=== PATIENT | female | born 1935 | race Caucasian/White ===

== ENCOUNTER → 2017-05-01 | Day surgery (SDC) | payer MEDICARE ==
[2017-04-29 11:30] LABS: BASOPHILS # (AUTO) 0.1 (0.0-0.1); BASOPHILS % 0.7 % (0.0-1.0); EOSINOPHILS # (AUTO) 0.1 (0.0-0.4); EOSINOPHILS % 1.3 % (0.0-6.0); HEMATOCRIT 45.7 % (34.2-44.1); HEMOGLOBIN 15.2 g/dL (12.0-16.0); LYMPHOCYTES # (AUTO) 2.6 (1.0-3.2); LYMPHOCYTES % 23.7 % (18.0-39.1); MEAN CORPUSCULAR HGB CONC 33.3 g/dL (31-35); MEAN CORPUSCULAR VOLUME 96.2 fL (81-99); MONOCYTES # (AUTO) 0.8 (0.2-0.8); MONOCYTES % 7.6 % (4.4-11.3); NEUTROPHILS # (AUTO) 7.3 (2.1-6.9); NEUTROPHILS % 66.1 % (38.7-80.0); PLATELET COUNT 265 x10e3/uL (140-360); RED BLOOD COUNT 4.75 x10e6/uL (3.6-5.1); RED CELL DISTRIBUTION WIDTH 13.9 % (11.7-14.4)
[~2017-05-01] MED LIST: AMIODARONE HCL200 MG PO; ASPIRIN81 MG PO; ATENOLOL50 MG PO; LEVOTHYROXINE50 MCG PO; LIDOCAINE HCL 2% LOCAL INJ 5 ML SDV VIAL INJ ONE; LYRICA50 MG PO; METOLAZONE5 MG PO; NITRO-BID1 GM TOP; ONDANSETRON HCL INJ 2 MG/ML VIAL ONE; PRAVASTATIN SOD40 MG PO; PROPOFOL IV EMULSION 10 MG/ML 50 ML VIAL ONE; SPIRONOLACTONE25 MG PO; WARFARIN SODIU2.5 MG PO
[2017-05-01 09:39] LABS: INR 1.36; PROTHROMBIN TIME 17.5 seconds (11.9-14.5)
--- NOTE | 2017-05-01 13:26 | Operative Report ---
DATE OF PROCEDURE: May 01, 2017 PROCEDURE PERFORMED: 1. Esophagogastroduodenoscopy with esophageal dilatation and biopsies. 2. Colonoscopy. INDICATIONS FOR ESOPHAGOGASTRODUODENOSCOPY: Dysphagia. INDICATIONS FOR COLONOSCOPY: Colorectal cancer screening, constipation, fecal incontinence. MEDICATION: Patient was done under MAC. Please see anesthesiologist's note. PROCEDURE: With patient in the left lateral decubitus position, the flexible fiberoptic Olympus gastroscope was introduced into the esophagus under direct visualization without any difficulty. Grade 1 to 2 esophageal varices were noted in the proximal half of the esophagus without active bleeding or stigmata of recent hemorrhage. The mucosa overlying the distal half of the esophagus revealed some patchy areas of erythema. A mild stricture was noted at the GE junction, and that was dilated to size 52-Bel[place] Luong. The scope was then advanced with ease into the stomach, traversing a small sliding hiatal hernia. Mucosa overlying the antrum and the body revealed some patchy erythema and mild to moderate edema, and biopsies were obtained and sent to stain for H. pylori. Pylorus appeared to be of normal contour and shape, was intubated with ease, and the scope was advanced all the way to the 2nd portion of the duodenum. The scope was then withdrawn slowly. Mucosa overlying the proximal 2nd portion and the duodenal bulb appeared to be within normal limits. The scope was then withdrawn back into the stomach and retroflexed, and the mucosa overlying the fundus and the cardia appeared to be within normal limits. The scope was then straightened out. The stomach was decompressed. The scope was subsequently withdrawn. Patient tolerated the procedure well. IMPRESSION: 1. Esophageal varices grade 1 to 2 in proximal half of esophagus without active bleeding or stigmata of recent hemorrhage. 1. Esophageal stricture at gastroesophageal junction dilated to size 52-Bel[place] Luong. 2. Small sliding hiatal hernia. 3. Gastritis biopsied. Biopsies sent to stain for H. pylori. PLAN: Follow up histology. Initiate Protonix 40 mg 1 p.o. q.a.m. a.c. Patient was then turned around and after adequate lubrication of the anal canal, a flexible fiberoptic Olympus colonoscope was inserted into the rectum with ease and advanced all the way to the cecum. The scope was then withdrawn slowly. The mucosa overlying the cecum, ascending colon and transverse colon appeared to be within normal limits. Diverticular disease was noted to involve the descending and the sigmoid. The rectum grossly appeared to be within normal limits. The scope was then retroflexed into the distal rectum and small internal hemorrhoids were noted, none of which was actively bleeding. The scope was then straightened out. The rectosigmoid area as well as the distal rectal area were decompressed. The scope was subsequently withdrawn. Patient tolerated the procedure well. IMPRESSION: 1. Diverticulosis. 2. Internal hemorrhoids, none actively bleeding. PLAN: Initiate high-fiber low-fat diet. Initiate high-fiber supplement. Start VSL#3 one p.o. daily and MiraLAX 17 grams p.o. in a glass of water once daily. There will be no need for any followup colonoscopies. Job#: [id number] GAYLA
[2017-05-01 13:28] LABS: BASOPHILS # (AUTO) 0.1 (0.0-0.1); BASOPHILS % 0.4 % (0.0-1.0); EOSINOPHILS # (AUTO) 0.1 (0.0-0.4); EOSINOPHILS % 0.3 % (0.0-6.0); HEMOGLOBIN 14.9 g/dL (12.0-16.0); LYMPHOCYTES # (AUTO) 1.6 (1.0-3.2); LYMPHOCYTES % 10.9 % (18.0-39.1); MEAN CORPUSCULAR HGB CONC 33.9 g/dL (31-35); MEAN CORPUSCULAR VOLUME 94.4 fL (81-99); MONOCYTES # (AUTO) 1.1 (0.2-0.8); MONOCYTES % 7.4 % (4.4-11.3); NEUTROPHILS % 80.3 % (38.7-80.0); PLATELET COUNT 216 x10e3/uL (140-360); RED BLOOD COUNT 4.66 x10e6/uL (3.6-5.1)
[2017-05-01 14:05] LABS: ALBUMIN/GLOBULIN RATIO 1.2 (0.8-2.0); ANION GAP 15.5 mmol/L (8-16); CALCIUM 9.6 mg/dL (8.4-10.2); CREATININE, SERUM 1.38 mg/dL (0.57-1.11); POTASSIUM 4.5 mmol/L (3.5-5.1)
== END ==
LOC: OR 08:34
PROVIDERS: ATTEND Internal Medicine Gastroenterology
DX: K29.70 Gastritis, unspecified, without bleeding (principal); K22.2 Esophageal obstruction; I85.00 Esophageal varices without bleeding; K44.9 Diaphragmatic hernia without obstruction or gangrene; T50.995A Adverse effect of other drugs, medicaments and biological substances, initial encounter; K59.00 Constipation, unspecified; K57.30 Diverticulosis of large intestine without perforation or abscess without bleeding; K64.8 Other hemorrhoids; K62.89 Other specified diseases of anus and rectum; J44.9 Chronic obstructive pulmonary disease, unspecified; D68.61 Antiphospholipid syndrome; I48.91 Unspecified atrial fibrillation; I11.0 Hypertensive heart disease with heart failure; I50.9 Heart failure, unspecified; I20.9 Angina pectoris, unspecified; L29.0 Pruritus ani; Z01.810 Encounter for preprocedural cardiovascular examination; Z01.812 Encounter for preprocedural laboratory examination; Z79.82 Long term (current) use of aspirin; Z79.01 Long term (current) use of anticoagulants; Z86.19 Personal history of other infectious and parasitic diseases; Z86.73 Personal history of transient ischemic attack (TIA), and cerebral infarction without residual deficits; Z80.0 Family history of malignant neoplasm of digestive organs
CPT/HCPCS: 36415 ×2; 43239; 43450; 45378; 80053; 82948; 85025 ×2; 85610; 85730; 88305; 88312; 93005; J2001; J2405

== ENCOUNTER 2018-08-30 10:38 | Emergency (ER) | payer MEDICARE ==
[~2018-08-30] VITALS: Ht 165.1 cm; Wt 68.0 kg
[~2018-08-30 10:38] MED LIST changes: -LIDOCAINE HCL 2% LOCAL INJ 5 ML SDV VIAL INJ ONE; -ONDANSETRON HCL INJ 2 MG/ML VIAL ONE; -PROPOFOL IV EMULSION 10 MG/ML 50 ML VIAL ONE
--- OUTSIDE RECORDS SUMMARY | 2018-08-30 10:41 | XMS REPORT ---
Author Author [facility] Address Unknown Phone Unavailable Care Team Providers Care Rug Measurer Name Role Phone TRACIE HALL Unavailable Unavailable Payers Payer Name Policy Type Policy Number Effective Date Expiration Date Problems This patient has no known problems. Allergies, Adverse Reactions, Alerts Allergy Name Allergy Type Status Severity Reaction(s) Onset Date Inactive Date Treating Clinician Comments Cephalexin Monohydrate DA Active DC 2018-08-08 00:00:00 Penicillins DA Active U 2018-08-08 00:00:00 Sulfa (Sulfonamide Antibiotics) DA Active DC 2018-08-08 00:00:00 codeine DA Active SV 2018-08-08 00:00:00 clonidine DA Active DC 2018-08-08 00:00:00 Cephalexin Monohydrate DA Active DC 2017-03-11 00:00:00 Penicillins DA Active U 2017-03-11 00:00:00 Sulfa (Sulfonamide Antibiotics) DA Active DC 2017-03-11 00:00:00 codeine DA Active 2017-03-11 00:00:00 clonidine DA Active DC 2017-03-11 00:00:00 Medications This patient has no known medications. Results Test Description Test Time Test Comments Text Results Atomic Results Result Comments PROCALCITONIN (PCT) 2018-08-08 13:09:00 PROCALCITONIN (PCT) (test code=PROCAL) < 0.05 ng/ml Concentration Interpretation (ng/mL) <0.51 Sepsis is not likely. Local bacterial infection is possible. (LOW RISK for progression to Sepsis) 0.51 - 2.00 Sepsis is possible, but other conditions are known to elevate PCT as well. (MODERATE RISK for progression to Sepsis) > 2.00 Sepsis is likely, unless other causes are known. (HIGH RISK for progression to Severe Sepsis or Septic Shock) 10.00 High likelihood of Severe Sepsis or Septic or higher Shock. *Increased PCT levels may not always be related to systemic bacterial infection.*Low PCT levels do not automatically exclude the presence of bacterial infection.*All results should be interpreted taking into account the patients history. B-TYPE NATRIURETIC [id number] 12:14:00* Test Item Value Reference Range Comments B-TYPE NATRIURETIC PEPTIDE (test code=BNP) 303.61 pgram/mL 0-100 BASIC METABOLIC [id number] 11:41:00* Test Item Value Reference Range Comments SODIUM (test code=NA) 140 mmol/L 136-145 POTASSIUM (test code=K) 4.0 mmol/L 3.5-5.1 CHLORIDE (test code=CL) 105.0 mmol/L 98-107 CARBON DIOXIDE (test code=CO2) 27.0 mmol/L 21-32 ANION GAP (test code=GAP) 12.0 10-20 GLUCOSE (test code=GLU) 97 mg/dL 74-106 BLOOD UREA NITROGEN (test code=BUN) 14 mg/dL 7-18 GLOMERULAR FILTRATION RATE (test code=GFR) 47 mL/min >=60 Estimated GFR by using Modified MDRD formula.Chronic kidney disease is defined as either kidney damageor GFR <60 mL/min/1.73 m2 for >3 months. CREATININE (test code=CREAT) 1.10 mg/dL 0.55-1.02 Note change in reference range due to change in reagent. BUN/CREATININE RATIO (test code=BUN/CREA) 12.5 10-20 CALCIUM (test code=CA) 8.8 mg/dL 8.5-10.1 HEPATIC FUNCTION [id number] 11:41:00* Test Item Value Reference Range Comments TOTAL PROTEIN (test code=PROT) 7.6 gram/dL 6.4-8.2 ALBUMIN (test code=ALB) 3.6 g/dL 3.4-5.0 GLOBULIN (test code=GLOB) 4.0 gram/dL 2.7-4.2 ALBUMIN/GLOBULIN RATIO (test code=A/G) 0.9 0.75-1.50 BILIRUBIN TOTAL (test code=BILT) 0.30 mg/dL 0.0-1.0 BILIRUBIN DIRECT (test code=BILD) 0.10 mg/dL 0.0-0.20 SGOT/AST (test code=AST) 22 IUnit/L 15-37 SGPT/ALT (test code=ALT) 20 IUnit/L 12-78 ALKALINE PHOSPHATASE TOTAL (test code=ALKP) 60 IUnit/L 45-117 Note change in reference range due to change in reagent. [id number] 11:41:00* Test Item Value Reference Range Comments TROPONIN-I (test code=TROPI) <0.015 ng/mL 0-0.045 BASIC METABOLIC [id number] 11:35:00* Test Item Value Reference Range Comments SODIUM (test code=NA) 140 mmol/L 136-145 POTASSIUM (test code=K) 4.0 mmol/L 3.5-5.1 CHLORIDE (test code=CL) 105.0 mmol/L 98-107 CARBON DIOXIDE (test code=CO2) mmol/L 21-32 ANION GAP (test code=GAP) 10-20 GLUCOSE (test code=GLU) mg/dL 74-106 BLOOD UREA NITROGEN (test code=BUN) mg/dL 7-18 GLOMERULAR FILTRATION RATE (test code=GFR) mL/min >=60 CREATININE (test code=CREAT) mg/dL 0.55-1.02 BUN/CREATININE RATIO (test code=BUN/CREA) 10-20 CALCIUM (test code=CA) mg/dL 8.5-10.1 HEPATIC FUNCTION [id number] 11:35:00* Test Item Value Reference Range Comments TOTAL PROTEIN (test code=PROT) gram/dL 6.4-8.2 ALBUMIN (test code=ALB) g/dL 3.4-5.0 GLOBULIN (test code=GLOB) gram/dL 2.7-4.2 ALBUMIN/GLOBULIN RATIO (test code=A/G) 0.75-1.50 BILIRUBIN TOTAL (test code=BILT) mg/dL 0.0-1.0 BILIRUBIN DIRECT (test code=BILD) mg/dL 0.0-0.20 SGOT/AST (test code=AST) IUnit/L 15-37 SGPT/ALT (test code=ALT) IUnit/L 12-78 ALKALINE PHOSPHATASE TOTAL (test code=ALKP) IUnit/L 45-117 [id number] 11:35:00* Test Item Value Reference Range Comments TROPONIN-I (test code=TROPI) ng/mL 0-0.045 LACTIC [id number] 11:35:00* Test Item Value Reference Range Comments LACTIC ACID (test code=LACT) 0.8 mmol/L 0.4-1.9 PROTHROMBIN [id number] 11:28:00* Test Item Value Reference Range Comments PROTHROMBIN TIME PATIENT (test code=PTP) 41.3 seconds 9.0-14.0 INTERNATIONAL NORMAL RATIO (test code=INR) 3.3 0.8-1.2 The therapeutic range for oral anticoagulant therapy formost indications is an international normalized ratio (INR)of between 2.0 and 3.0. The recommended therapeutic INRrange for various clinical situations is listed below: Clinical Situation INR range Pulmonary e mbolism treatment (2.0-3.0)Venous thrombosis treatmentVenous thrombosis prophylaxis (high risk surgery)Prevention of systemic embolism from: Acute myocardial infarction Valvular heart disease Atrial fibrillation Mechanical prosthetic heart valves (2.5-3.5) IS PATIENT ON ANTICOAGULANTS? NTHROMBOPLASTIN TIME [id number] 11:28:00* Test Item Value Reference Range Comments THROMBOPLASTIN TIME PARTIAL (test code=PTT) 48.8 seconds 25.0-36.5 IS PATIENT ON ANTICOAGULANTS? N- XR CHEST 1 [id number] 11:25:00 FAX: Randa Madison MD [phone] [place]: St: REG Name: JENELLE PENA [facility] : [birth year] Age/S: 83/F [address] [facility] Unit #: [id number] Loc: [place] [address] Phys: Randa Madison MD Acct: [id number] Dis Date: Status: REG ER PHONE #: [phone] Exam Date: 08/08/2018 1118 FAX #: [phone] Reason: Shortness of Breath EXAMS: CPT CODE: [id number] XR CHEST 1 V 92869 REASON FOR EXAM: Shortness of Breath EXAM ORDER DATE: 08/08/2018 10:37 AM Ordering MStephen: Randa Madison MD PROCEDURE: - XR CHEST 1 V COMPARISON: 03/11/2017 FINDINGS: Portable AP frontal view of the chest obtained at 11:19 AM shows clear lungs. There is no evidence of consolidation. There is no evidence of effusion. The heart size is minim ally enlarged. Stable appearance of the left subclavian pacemaker. Pulmona ry vasculatures are unremarkable. IMPRESSION: No active d isease. at 1125 Reported and signed by: Waqar Bates M.D. CC: Randa Madison MD Technologist: GENNY DEWEY RT(R) Trnscrd Date/Time/By: 2018 (3744) : By: Eron Orig Print D/T: S: 08/08/2018 (6431) PAGE 1 Signed Report CBC W/O [id number] 11:14:00* Test Item Value Reference Range Comments WHITE BLOOD CELL (test code=WBC) 4.7 K/mm3 4.5-12.5 RED BLOOD CELL (test code=RBC) 4.35 mill/mm3 3.7-5.2 HEMOGLOBIN (test code=HGB) 13.1 gram/dL 11.5-15.5 HEMATOCRIT (test code=HCT) 41.7 % 36.0-46.0 MEAN CELL VOLUME (test code=MCV) 95.9 fL 80-98 MEAN CELL HGB (test code=MCH) 30.1 picogram 27.0-33.0 MEAN CELL HGB CONCETRATION (test code=MCHC) 31.4 gram/dL 33.0-36.0 RED CELL DISTRIBUTION WIDTH (test code=RDW) 14.6 % 11.6-16.2 PLATELET COUNT (test code=PLT) 142 K/mm3 150-450 MEAN PLATELET VOLUME (test code=MPV) 10.3 fL 6.7-11.0 CBC W/O [id number] 11:09:00* Test Item Value Reference Range Comments WHITE BLOOD CELL (test code=WBC) K/mm3 4.5-12.5 RED BLOOD CELL (test code=RBC) mill/mm3 3.7-5.2 HEMOGLOBIN (test code=HGB) 13.1 gram/dL 11.5-15.5 HEMATOCRIT (test code=HCT) 41.7 % 36.0-46.0 MEAN CELL VOLUME (test code=MCV) fL 80-98 MEAN CELL HGB (test code=MCH) picogram 27.0-33.0 MEAN CELL HGB CONCETRATION (test code=MCHC) gram/dL 33.0-36.0 RED CELL DISTRIBUTION WIDTH (test code=RDW) % 11.6-16.2 PLATELET COUNT (test code=PLT) K/mm3 150-450 MEAN PLATELET VOLUME (test code=MPV) fL 6.7-11.0 CT ABDOMEN WOW [place] [address] Patient Name: JENELLE PALMER MR #: [id number] : 1935 Age/Sex: 81/F Req #: [id number] Adm Physician: Ordered by: TRACIE HALL MD Report #: [id number] Location: CT Room/Bed: Procedure: [id number] CT/CT ABDOMEN WOW Exam Date: 05/30/17 Exam Time: 1620 REPORT STATUS: Signed EXAM: CT Abdomen WITHOUT and WITH contrast INDICATION: C OMPARISON: Right upper quadrant ultrasound dated 05/28/2017 TECHNIQUE: Abdomen was scanned utilizing a multidetector helical scanner from the lung base to t he iliac crest before and after administration of IV contrast. Coronal and sag ittal reformations were obtained. Liver mass protocol was performed. Scan was performed pre-, arterial, portal venous, and 5 minute delayed phase. IV CONTRAST: 100 mL of Isovue-370 ORAL CONTRAST: Water C OMPLICATIONS: None RADIATION DOSE: Total DLP: 605.14 mGy*cm E stimated effective dose: (DLP x 0.015 x size factor) mSv CTDIvol has been reviewed. It is below the limits set by the Radiation Protocol Committee (RPC ). FINDINGS: LINES and TUBES: Distal leads of cardiac pacemaker termin ate in right atrium and right ventricle. Mitral valve and to lesser extent aor tic valve calcification. Mild cardiomegaly. Left basilar linear atelectasis/sc arring. LOWER THORAX: Unremarkable HEPATOBILIARY: Tiny segment 4A hyp odensity (series 5, image 13) is too small to characterize. Otherwise, no art erially enhancing or focal hepatic lesions. No biliary ductal dilation. Normal liver contour. Biliary Ductal Dilation: None Portal Vein: Pat ent Hepatic Vein: Patent Hepatic Artery anatomy: Conventional GALLBLADDER: No radio-opaque stones or sludge. No wall thickening. SPLEEN: No splenomegaly. PANCREAS: No focal masses or ductal dilatation. ADRENALS: Indeterminate 1 cm left adrenal nodule. KIDNEYS/URETERS: Kidn eys enhance symmetrically. No hydronephrosis. No renal mass. 1.4 cm left post erior superior pole cyst. No stones. GI TRACT: Visualized bowel loops are unremarkable. No evidence of bowel obstruction. Colonic diverticulosis without evidence of diverticulitis. LYMPH NODES: Severe aortoiliac ath erosclerotic calcification. VESSELS: Unremarkable. PERITONEUM / RETROP ERITONEUM: No free air or fluid. BONES: Mild lumbar spine levoscoliosis wit h multilevel degenerative changes. SOFT TISSUES: Bilateral buttock subcutan eous calcification, likely injection granulomas. IMPRESSION: 1. No hepatic mass visualized. 2. No acute inflammatory process in the ab domen. 3. Indeterminate 1 cm left adrenal nodule. Signed by: Dr. Wilver loya MD on 05/30/2017 5:19 PM Dictated By: WILVER ALEXANDER MD Electronic ally Signed By: WILVER ALEXANDER MD on 05/30/171718 Transcribed By: JULIO on 1718 COPY TO: TRACIE HALL MD LIVER [place] [address] Patient Name: JENELLE APLMER MR #: [id number] : 1935 Age/Sex: 81/F Req #: [id number] Adm Physician: Ordered by: TRACIE HALL MD Report #: [id number] Location: Room/Bed: Procedure: [id number] US/US LIVER Exam Date: Exam Time: 0910 REPORT STATUS: Signed PRO CEDURE: LIVER ULTRASOUND COMPARISON: None. INDICATIONS: Esophageal Kalin ices FINDINGS: Liver: 14.2 cm. Normal hepatic parenchymal echogen icity. No focal mass. Main portal vein: 9.0 mm. Hepatopedal flow. Possibl e increased vascularity around the region of the main portal vein, without ev idence of thrombus. Gallbladder: 0.4 cm nonmobile bowel echogenic focus is present in the gallbladder. No echogenic calculi, gallbladder wall thicke josy, or pericholecystic fluid. Common Bile Duct: 3.0 mm. No echogenic fill ing defect. Sonographic Olmstead's sign: Negative. Right kidney: 9.7 cm. No solid or cystic mass, echogenic calculi, or hydronephrosis. Normal parench ymal echogenicity. Pancreas: The visualized portions of the pancreas are n ormal. Inferior vena cava: Normal. Aorta: Normal. Ascites: None. CONCLUSION: 1. No acute sonographic abnormality. 2. Increased vascul arity in the region of the main portal vein of uncertain etiology. The findin g may represent an artifact or early portal hypertension. Correlate with clin ical findings for the need of further characterization of the portal system w ith a CT of the abdomen with liver mass protocol. Dictated by: Gallito Blunt M.D. on 05/28/2017 at 12:07 Electronically approved by: Arias Blunt M.D. on 05/28/2017 at 12:07 Dictated By: ARIAS Wilkins 1207 Transcribed By: IN FCE on 05/28/17 1207 COPY TO: TRACIE HALL MD
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
--- NOTE | 2018-08-30 12:59 | Diagnostic Imaging Report ---
History: Back pain Comparison studies: Included lumbar spine from abdomen CT 05/30/2017. Technique: Axial images were obtained through the lumbar spine. Coronal and sagittal images reconstructed from the axial data. Dose modulation, iterative reconstruction, and/or weight based adjustment of the mA/kV was utilized to reduce the radiation dose to as low as reasonably achievable. Intravenous contrast: None Findings: Number of non-rib bearing vertebral bodies: 5 Alignment: Thoracolumbar curvature convex to the left centered at L2-L3. Normal lumbar lordosis. Minimal grade 1 retrolisthesis of L1 on L2 and L2 on L3. Soft tissues: No acute abnormalities. Paraspinal muscles: Unremarkable. Sacroiliac joints: No degenerative changes. Vertebrae: No fractures, infection or neoplasm. Degenerative changes: Decreased interspinous spaces with articulating hypertrophic spinous processes which can be seen with Baastrup syndrome. L1-L2: Severely degenerated disc with loss of disc height. Minimal retrolisthesis of L1 on L2 with associated disc osteophyte complex with mild right foraminal stenosis. Patent canal and left foramen. L2-L3: Severely degenerated disc with loss of disc height. Minimal retrolisthesis of L2 on L3 with disc osteophyte complex, thickened ligamentum flavum and facet arthrosis with severe right and mild to moderate left foraminal stenosis and mild canal stenosis. L3-L4: Mild loss of disc height, greatest on the right along the concavity of curvature were there is also vacuum phenomenon. Disc osteophyte complex, thickened ligamentum flavum and severe bilateral facet arthrosis with severe canal stenosis and severe right and moderate left foraminal stenosis. L4-L5: Mild loss of disc height. There is mild left lateral translation of L4 on L5. Disc osteophyte complex, thickened ligamentum flavum and severe bilateral facet arthrosis with severe canal stenosis and severe left and moderate right foraminal stenosis. L5-S1: Mild loss of disc height with vacuum phenomenon. Disc bulge, thickened ligamentum flavum and severe facet arthrosis with severe canal stenosis and severe left and moderate right foraminal stenosis. Additional findings: Diffuse severe calcified atherosclerosis throughout the aorta; no aneurysm. Moderate calcified plaque in the bilateral iliac vessels. IMPRESSION: 1. No lumbar spine fracture or acute subluxation. 2. Severe degenerative changes with multilevel disc degeneration, advanced facet arthrosis, severe canal stenosis from L3 to S1 and varying degrees of moderate to severe foraminal stenosis from L2 to S1. 3. Lumbar curvature convex to the left, apex at L2-L3. Signed by: Dr. Trev Valiente M.D. on 08/30/2018 12:56 PM
== END 2018-08-30 13:42 | disposition home or self-care (01) ==
LOC: ER 10:38
DX: M54.2 Cervicalgia (principal); M54.5 Low back pain; S16.1XXA Strain of muscle, fascia and tendon at neck level, initial encounter; S39.012A Strain of muscle, fascia and tendon of lower back, initial encounter; V43.52XA Car driver injured in collision with other type car in traffic accident, initial encounter; Y92.488 Other paved roadways as the place of occurrence of the external cause; I10 Essential (primary) hypertension; J44.9 Chronic obstructive pulmonary disease, unspecified; I50.9 Heart failure, unspecified; I48.91 Unspecified atrial fibrillation; Z95.0 Presence of cardiac pacemaker
CPT/HCPCS: 70450; 72125; 72131; 72170; 99283

== ENCOUNTER → 2018-10-06 | Outpatient (CLI) | payer MEDICARE ==
[~2018-10-06] MED LIST changes: +DIATRIZOATE MEGL/DIATRIZOA SOD 30 ML BTL PO ONE
[2018-10-06 15:19] LABS: CREATININE, SERUM 1.57 mg/dL (0.57-1.11)
--- NOTE | 2018-10-06 16:54 | Diagnostic Imaging Report ---
EXAM: CT ABDOMEN AND PELVIS without IV CONTRAST DATE: 10/06/2018 Time stamp on Exam: 3:44 PM INDICATION: Diverticulitis COMPARISON: None TECHNIQUE: The abdomen and pelvis were scanned using a multidetector helical scanner. Coronal and sagittal reformations were obtained. Routine protocol performed. Low-dose technique was utilized to maintain the lowest dose possible to the patient. IV Contrast: None as the patient has an eGFR of 31 Oral Contrast: Gastrografin intermixed with water Radiation Dose: Total DLP 198.21 mGy*cm Estimated effective dose: DLP x 0.015 x size factor FINDINGS: LOWER THORAX: No consolidations. There are leads within the heart. Extensive mitral valve annulus calcification. LIVER: No masses BILIARY: The gallbladder is unremarkable. No ductal dilatation. SPLEEN: No masses PANCREAS: No masses ADRENALS: No nodules KIDNEYS: Symmetric perfusion. No enhancing masses. No hydronephrosis. GI TRACT: No distention, wall thickening or evidence of obstruction. Scattered diverticula throughout the colon. No evidence to suggest diverticulitis. VESSELS: Atherosclerotic vascular calcification. PERITONEUM/RETROPERITONEUM: No free air or fluid LYMPH NODES: No lymphadenopathy REPRODUCTIVE ORGANS: Unremarkable BLADDER: Unremarkable SOFT TISSUES: Unremarkable BONES: No suspicious bone lesions. Degenerative changes in lower spine facet arthropathy. IMPRESSION: Diverticulosis without findings to suggest acute diverticulitis. Signed by: Dr. Valentin Martinez DO on 10/06/2018 4:51 PM
== END ==
LOC: CT 14:29
PROVIDERS: ATTEND Internal Medicine
DX: K57.92 Diverticulitis of intestine, part unspecified, without perforation or abscess without bleeding (principal)
CPT/HCPCS: 36415; 74176; 82565; 84520

== ENCOUNTER → 2018-12-10 | Outpatient (CLI) | payer MEDICARE ==
[~2018-12-10] MED LIST changes: -DIATRIZOATE MEGL/DIATRIZOA SOD 30 ML BTL PO ONE
--- NOTE | 2018-12-10 16:54 | Diagnostic Imaging Report ---
History:Vertigo Comparison studies: None Technique: Axial images were obtained from the skull base to the vertex. Coronal and sagittal images reconstructed from the axial data. Dose modulation, iterative reconstruction, and/or weight based adjustment of the mA/kV was utilized to reduce the radiation dose to as low as reasonably achievable. Intravenous contrast: None Findings: Scalp/skull: No abnormalities. Extra-axial spaces: No masses. No fluid collections. Brain sulci: Mildly prominent. Ventricles: Mild compensatory dilatation. No hydrocephalus. Parenchyma: Subtle, scattered hypodensities in the supratentorial white matter are small vessel ischemic changes. No masses, hemorrhage, acute or chronic cortical vascular insults. Sellar/suprasellar region: No abnormalities. Craniocervical junction: Patent foramen magnum. No Chiari one malformation. Incidental findings: Atherosclerotic calcifications in the carotid siphons . Impression: No acute abnormalities. Chronic findings: 1. Mild generalized volume loss. 2. Mild supratentorial white matter small vessel ischemic changes. Signed by: Dr. Juanito Eugene M.D. on 12/10/2018 4:51 PM
--- NOTE | 2018-12-11 08:05 | Diagnostic Imaging Report ---
Lumbar spine series, 5 views. History: <Pain>. Comparison: <None available>. Discussion: The soft tissues are unremarkable. Bony osteopenia is present. There is mild lumbar spine scoliosis. Multilevel degenerative changes of the spine. Hypertrophic osteophytes at T12-L1 and L1-L2. No fracture or dislocation. There is mild retrolisthesis of L4 on L5. There is diffuse arterial vascular calcification. IMPRESSION: Diffuse bony osteopenia without evidence of a fracture. Multilevel degenerative changes are present. Signed by: Dr. Valentin Martinez DO on 12/11/2018 8:02 AM
== END ==
LOC: CT 15:38
PROVIDERS: ATTEND Internal Medicine
DX: G45.1 Carotid artery syndrome (hemispheric) (principal); M54.40 Lumbago with sciatica, unspecified side
CPT/HCPCS: 70450; 72110

== ENCOUNTER 2018-12-25 12:38 | Emergency (ER) | payer MEDICARE ==
[~2018-12-25] VITALS: Ht 154.9 cm; Wt 55.3 kg
[2018-12-25 13:48] LABS: BILIRUBIN,URINE NEGATIVE (NEGATIVE); CLARITY,URINE CLEAR (CLEAR); COLOR,URINE YELLOW (YELLOW); KETONES,URINE NEGATIVE (NEGATIVE); LEUKOCYTE ESTERASE ,URINE NEGATIVE (NEGATIVE); NITRITE,URINE NEGATIVE (NEGATIVE); PROTEIN,URINE DIPSTICK NEGATIVE (NEGATIVE); URINE UROBILINOGEN 0.2 mg/dL (0.2 - 1)
[2018-12-25 14:03] LABS: BACTERIA,URINE FEW /HPF; EPITHELIAL CELLS,URINE RARE /LPF
--- NOTE | 2018-12-25 14:04 | Diagnostic Imaging Report ---
PROCEDURE: Frontal and lateral views of the chest. COMPARISON: None. INDICATIONS: NAUSEA, DIZZINESS FINDINGS: Lungs are well-inflated. Linear opacity in the left lung base compatible with scar or subsegmental atelectasis. No airspace consolidation, pleural effusion, or pneumothorax. Left subclavian approach implantable cardiac device body projects over the left axilla. Leads project over the right atrium and right ventricle. Normal heart size with atherosclerotic calcification of the thoracic aorta. No overt pulmonary edema. No acute osseous abnormality. Degenerative changes of the shoulder girdles. Degenerative disc changes of the upper lumbar spine partially visualized. IMPRESSION: No acute cardiopulmonary abnormality. Dictated by: Trev Rothman M.D. on 12/25/2018 at 14:08 Electronically approved by: Trev Rothman M.D. on 12/25/2018 at 14:08
[2018-12-25 15:07] VITALS: BP 120/76
== END 2018-12-25 15:15 | disposition home or self-care (01) ==
LOC: ER 12:38
DX: R11.0 Nausea (principal); R42 Dizziness and giddiness
CPT/HCPCS: 71046; 81001; 87086; 99283; 99284

== ENCOUNTER 2021-11-21 16:29 | Inpatient (IN) | payer MEDICARE ==
[~2021-11-21] VITALS: Ht 154.9 cm; Wt 47.6 kg
[2021-11-21 17:30] VITALS: BP 90/47
[2021-11-21 18:16] LABS: BASOPHILS % 0.1 % (0.0-1.0); HEMATOCRIT 29.5 % (34.2-44.1); HEMOGLOBIN 8.9 g/dL (12.0-16.0); LYMPHOCYTES # (AUTO) 0.5 (1.0-3.2); LYMPHOCYTES % 2.7 % (18.0-39.1); MEAN CORPUSCULAR HEMOGLOBIN 30.7 pg (28-32); MEAN CORPUSCULAR HGB CONC 30.2 g/dL (31-35); MEAN CORPUSCULAR VOLUME 101.7 fL (81-99); MONOCYTES # (AUTO) 0.9 (0.2-0.8); MONOCYTES % 4.5 % (4.4-11.3); NEUTROPHILS # (AUTO) 17.7 (2.1-6.9); NEUTROPHILS % 90.8 % (38.7-80.0); PLATELET COUNT 360 x10e3/uL (140-360); RED CELL DISTRIBUTION WIDTH 20.3 % (11.7-14.4)
[2021-11-21 18:40] LABS: ALBUMIN 2.1 g/dL (3.5-5.0); ALBUMIN/GLOBULIN RATIO 0.5 (0.8-2.0); ANION GAP 14.7 mmol/L (8-16); CALCIUM 7.9 mg/dL (8.4-10.2); POTASSIUM 3.7 mmol/L (3.5-5.1)
[2021-11-21 18:44] LABS: INR 10.12; PROTHROMBIN TIME 103.7 seconds (11.9-14.5)
[2021-11-21 18:45] LABS: PARTIAL THROMBOPLASTIN TIME 174.8 seconds (23.8-35.5)
[2021-11-21] MEDS ORDERED: SODIUM CHLORIDE 0.9% 1000ML 1,000 ML IV ONE (19:00)
[2021-11-21 20:00] VITALS: BP 93/53
[2021-11-21] MEDS ORDERED: SIMETHICONE 80 MG CHEW PO PRN (20:00)
[2021-11-21] MEDS ORDERED: ALBUTEROL/IPRATROPIUM 3 ML NEB NEB PRN (20:00)
[2021-11-21] MEDS ORDERED: DIPHENHYDRAMINE HCL 25 MG CAP PO PRN (20:00)
[2021-11-21] MEDS ORDERED: PHENAZOPYRIDINE HCL 100 MG TAB PO PRN (20:00)
[2021-11-21] MEDS ORDERED: MELATONIN 5 MG TABLET PO PRN (20:00)
[2021-11-21] MEDS ORDERED: LIDOCAINE 4% PATCH TP PRN (20:00)
[2021-11-21] MEDS ORDERED: POTASSIUM CHLORIDE 20 MEQ TAB CR PO PRN (20:00)
[2021-11-21] MEDS ORDERED: HYDRALAZINE HCL 20 MG/ML VIAL IV PRN (20:00)
[2021-11-21] MEDS ORDERED: DEXTROSE 50% SYRINGE 50 ML IV PRN (20:00)
[2021-11-21] MEDS ORDERED: DOCUSATE SODIUM 100 MG CAP PO PRN (20:00)
[2021-11-21] MEDS ORDERED: MIDODRINE 2.5 MG TAB PO SCH (20:00)
[2021-11-21] MEDS ORDERED: ACETAMINOPHEN 325 MG TAB PO PRN (20:00)
[2021-11-21] MEDS ORDERED: BENZONATATE 100 MG CAP PO PRN (20:00)
[2021-11-21] MEDS ORDERED: ONDANSETRON HCL INJ 2MG/ML 2ML 2 MG/ML VIAL IV PRN (20:00)
[2021-11-21] MEDS ORDERED: PHYTONADIONE 10 MG/ML AMP SQ ONE (20:00)
[2021-11-21 20:09] LABS: % IRON SATURATION 4 % (15-50); IRON 8 ug/dL (50-170); TOTAL IRON BINDING CAPACITY 195 ug/dL (261-478); TRANSFERRIN 139 mg/dL (180-382)
[2021-11-21 21:00] VITALS: BP 93/53
[2021-11-21] MEDS: DEXTROSE 5%/0.9% SOD CHL 1,000 ML IV SCH (21:29)
[2021-11-21] MEDS: MIDODRINE 2.5 MG TAB PO SCH (21:32)
[2021-11-22] VITALS (10 sets, daily range): BP systolic 89–116; BP diastolic 41–79
[2021-11-22] MEDS ORDERED: SODIUM CHLORIDE 0.9% 250ML 250 ML ONE ×2 (00:35→14:45)
[2021-11-22] MEDS ORDERED: Vancomycin IV 1 GM in SODIUM CHLORIDE 0.9% 250ML 250 ML IV ONE (02:15)
[2021-11-22] MEDS ORDERED: Vancomycin IV 1 GM in SODIUM CHLORIDE 0.9% 250ML 250 ML IV SCH (03:00)
[2021-11-22 05:48] LABS: BASOPHILS % 0.1 % (0.0-1.0); EOSINOPHILS % 0.3 % (0.0-6.0); HEMATOCRIT 24.3 % (34.2-44.1); LYMPHOCYTES # (AUTO) 0.9 (1.0-3.2); LYMPHOCYTES % 8.6 % (18.0-39.1); MEAN CORPUSCULAR HEMOGLOBIN 30.6 pg (28-32); MEAN CORPUSCULAR HGB CONC 29.2 g/dL (31-35); MEAN CORPUSCULAR VOLUME 104.7 fL (81-99); MONOCYTES # (AUTO) 0.6 (0.2-0.8); MONOCYTES % 5.7 % (4.4-11.3); NEUTROPHILS % 84.4 % (38.7-80.0); PLATELET COUNT 252 x10e3/uL (140-360); RED BLOOD COUNT 2.32 x10e6/uL (3.6-5.1); RED CELL DISTRIBUTION WIDTH 20.3 % (11.7-14.4)
[2021-11-22 05:49] LABS: HEMOGLOBIN 7.1 g/dL (12.0-16.0)
[2021-11-22 06:07] LABS: INR 4.85
[2021-11-22 06:08] LABS: ANION GAP 13.6 mmol/L (8-16); CALCIUM 7.4 mg/dL (8.4-10.2); CREATININE, SERUM 1.3 mg/dL (0.57-1.11); PHOSPHORUS 3.2 MG/DL (2.3-4.7); POTASSIUM 3.6 mmol/L (3.5-5.1)
[2021-11-22 06:09] LABS: PROTHROMBIN TIME 48.4 seconds (11.9-14.5)
[2021-11-22 06:29] LABS: THYROID STIMULATING HORMONE 0.141 uIU/mL (0.350-4.940)
[2021-11-22] MEDS: LEVOTHYROXINE SODIUM 50 MCG TAB PO SCH (07:30)
[2021-11-22 08:06] LABS: ANISOCYTOSIS MODERATE; HYPOCHROMASIA SLIGHT; PLATELET ESTIMATE ADEQUATE; PLATELET MORPHOLOGY COMMENT NORMAL; RBC MORPHOLOGY COMMENT ABNORMAL
[2021-11-22] MEDS: PANTOPRAZOLE SOD 40 MG TABEC PO SCH (10:24)
[2021-11-22] MEDS: MIDODRINE 2.5 MG TAB PO SCH ×2 (10:24→10:27)
[2021-11-22] MEDS: DEXTROSE 5%/0.9% SOD CHL 1,000 ML IV SCH (10:26)
[2021-11-22] MEDS ORDERED: SODIUM CHLORIDE 0.9% 250ML 250 ML IV ONE (11:45)
[2021-11-22] MEDS: MIDODRINE HCL 5 MG TABLET PO SCH ×2 (13:08→18:00)
[2021-11-22 17:27] LABS: CHOL/HDL RATIO 3.9 (3.0-3.6)
[2021-11-22 17:33] LABS: DIGOXIN 0.41 ng/mL (0.8-2.0)
[2021-11-23] VITALS (9 sets, daily range): BP systolic 119–130; BP diastolic 60–73
[2021-11-23] MEDS ORDERED: SODIUM CHLORIDE 0.9% 250ML 250 ML ONE (00:35)
[2021-11-23] MEDS: DEXTROSE 5%/0.9% SOD CHL 1,000 ML IV SCH ×2 (04:55→13:49)
[2021-11-23 05:59] LABS: BASOPHILS % 0.2 % (0.0-1.0); EOSINOPHILS % 0.3 % (0.0-6.0); HEMATOCRIT 33.7 % (34.2-44.1); HEMOGLOBIN 10.1 g/dL (12.0-16.0); LYMPHOCYTES % 7.9 % (18.0-39.1); MONOCYTES # (AUTO) 0.7 (0.2-0.8); MONOCYTES % 5.6 % (4.4-11.3); NEUTROPHILS # (AUTO) 10.1 (2.1-6.9); NEUTROPHILS % 84.8 % (38.7-80.0); PLATELET COUNT 266 x10e3/uL (140-360); RED BLOOD COUNT 3.37 x10e6/uL (3.6-5.1)
[2021-11-23] MEDS ORDERED: IOPAMIDOL 370 MG/ML 100 ML INFUS..BTL INJ ONE (05:59)
[2021-11-23] MEDS: MIDODRINE HCL 5 MG TABLET PO SCH ×4 (06:00→17:19)
[2021-11-23 06:10] LABS: INR 3.11; PROTHROMBIN TIME 34.2 seconds (11.9-14.5)
[2021-11-23 06:28] LABS: ALBUMIN 1.8 g/dL (3.5-5.0); ALBUMIN/GLOBULIN RATIO 0.5 (0.8-2.0); ANION GAP 13.4 mmol/L (8-16); CALCIUM 7.4 mg/dL (8.4-10.2); CREATININE, SERUM 0.81 mg/dL (0.57-1.11); MAGNESIUM 1.9 MG/DL (1.3-2.1)
[2021-11-23 06:43] LABS: POTASSIUM 4.4 mmol/L (3.5-5.1)
[2021-11-23 07:45] LABS: AMPHETAMINES SCREEN,URINE NEGATIVE (NEGATIVE); CLARITY,URINE CLOUDY (CLEAR); COLOR,URINE YELLOW (YELLOW); KETONES,URINE NEGATIVE (NEGATIVE); LEUKOCYTE ESTERASE ,URINE NEGATIVE (NEGATIVE); NITRITE,URINE NEGATIVE (NEGATIVE); PHENCYCLIDINE SCREEN,URINE NEGATIVE (NEGATIVE); PROTEIN,URINE DIPSTICK 1+ (NEGATIVE)
[2021-11-23 07:46] LABS: BENZODIAZEPINES SCREEN,URINE NEGATIVE (NEGATIVE); URINE UROBILINOGEN 1 mg/dL (0.2 - 1)
[2021-11-23] MEDS: LEVOTHYROXINE SODIUM 50 MCG TAB PO SCH (08:00)
[2021-11-23] MEDS: PANTOPRAZOLE SOD 40 MG TABEC PO SCH (08:00)
[2021-11-23 08:18] LABS: BACTERIA,URINE MANY /HPF; EPITHELIAL CELLS,URINE FEW /LPF; RBC,URINE >50 /HPF (0-5); RENAL EPITHELIAL CELLS,URINE FEW; TRANSITIONAL EPI CELLS,URINE FEW; WBC,URINE (MAN) >50 /HPF (0-5)
[2021-11-23] MEDS: COLLAGENASE 5 GM TUBE TP SCH (09:58)
[2021-11-23 17:00] LABS: INR 2.4; PROTHROMBIN TIME 27.9 seconds (11.9-14.5)
[2021-11-23] MEDS: DONEPEZIL HCL 5 MG TAB PO SCH (21:00)
[2021-11-23] MEDS: QUETIAPINE FUMARATE 25 MG TAB PO SCH (21:00)
[2021-11-24] VITALS (8 sets, daily range): BP systolic 110–133; BP diastolic 54–85
[2021-11-24] MEDS: DEXTROSE 5%/0.9% SOD CHL 1,000 ML IV SCH (05:13)
[2021-11-24] MEDS: MIDODRINE HCL 5 MG TABLET PO SCH ×6 (06:00→23:27)
[2021-11-24 06:54] LABS: BASOPHILS % 0.2 % (0.0-1.0); EOSINOPHILS # (AUTO) 0.1 (0.0-0.4); EOSINOPHILS % 0.5 % (0.0-6.0); HEMOGLOBIN 9.8 g/dL (12.0-16.0); LYMPHOCYTES % 8.1 % (18.0-39.1); MEAN CORPUSCULAR HEMOGLOBIN 29.7 pg (28-32); MEAN CORPUSCULAR HGB CONC 30.6 g/dL (31-35); MONOCYTES # (AUTO) 0.7 (0.2-0.8); MONOCYTES % 5.4 % (4.4-11.3); NEUTROPHILS # (AUTO) 10.6 (2.1-6.9); NEUTROPHILS % 85.1 % (38.7-80.0); PLATELET COUNT 262 x10e3/uL (140-360); RED CELL DISTRIBUTION WIDTH 20.9 % (11.7-14.4)
[2021-11-24 07:19] LABS: CALCIUM 7.5 mg/dL (8.4-10.2); CREATININE, SERUM 0.65 mg/dL (0.57-1.11)
[2021-11-24] MEDS ORDERED: AMIODARONE HCL 200 MG TAB PO SCH (09:00)
[2021-11-24] MEDS ORDERED: DIGOXIN 0.25 MG TAB PO SCH (09:00)
[2021-11-24] MEDS: LEVOTHYROXINE SODIUM 50 MCG TAB PO SCH (10:18)
[2021-11-24] MEDS: FENOFIBRATE 145 MG TAB PO SCH (10:19)
[2021-11-24] MEDS: MONTELUKAST SODIUM 10 MG TAB PO SCH (10:19)
[2021-11-24] MEDS: PANTOPRAZOLE SOD 40 MG TABEC PO SCH (10:19)
[2021-11-24] MEDS: COLLAGENASE 5 GM TUBE TP SCH (10:23)
[2021-11-24] MEDS: COLLAGENASE 5 GM TUBE TOP SCH (10:23)
[2021-11-24] MEDS: METOPROLOL TARTRATE 25 MG TAB PO SCH (17:22)
[2021-11-24] MEDS: DONEPEZIL HCL 5 MG TAB PO SCH (20:36)
[2021-11-24] MEDS: QUETIAPINE FUMARATE 25 MG TAB PO SCH (20:36)
[2021-11-25] VITALS (8 sets, daily range): BP systolic 112–131; BP diastolic 63–89
[2021-11-25] MEDS: MIDODRINE HCL 5 MG TABLET PO SCH ×4 (05:29→23:20)
[2021-11-25 08:02] LABS: BASOPHILS % 0.3 % (0.0-1.0); EOSINOPHILS # (AUTO) 0.1 (0.0-0.4); EOSINOPHILS % 0.8 % (0.0-6.0); HEMATOCRIT 35.5 % (34.2-44.1); HEMOGLOBIN 10.1 g/dL (12.0-16.0); LYMPHOCYTES # (AUTO) 0.7 (1.0-3.2); LYMPHOCYTES % 6.1 % (18.0-39.1); MEAN CORPUSCULAR HEMOGLOBIN 29.6 pg (28-32); MEAN CORPUSCULAR HGB CONC 28.5 g/dL (31-35); MEAN CORPUSCULAR VOLUME 104.1 fL (81-99); MONOCYTES # (AUTO) 0.6 (0.2-0.8); MONOCYTES % 5.3 % (4.4-11.3); NEUTROPHILS # (AUTO) 9.6 (2.1-6.9); NEUTROPHILS % 86.2 % (38.7-80.0); PLATELET COUNT 207 x10e3/uL (140-360); RED BLOOD COUNT 3.41 x10e6/uL (3.6-5.1); RED CELL DISTRIBUTION WIDTH 20.2 % (11.7-14.4)
[2021-11-25 08:07] LABS: INR 1.42; PROTHROMBIN TIME 18.5 seconds (11.9-14.5)
[2021-11-25 08:15] LABS: ANION GAP 9.3 mmol/L (8-16); CALCIUM 7.3 mg/dL (8.4-10.2); CREATININE, SERUM 0.62 mg/dL (0.57-1.11); POTASSIUM 4.3 mmol/L (3.5-5.1)
[2021-11-25] MEDS: PANTOPRAZOLE SOD 40 MG TABEC PO SCH (08:26)
[2021-11-25] MEDS: LEVOTHYROXINE SODIUM 50 MCG TAB PO SCH (08:26)
[2021-11-25] MEDS: DIGOXIN 0.125 MG TAB PO SCH (08:27)
[2021-11-25] MEDS: FENOFIBRATE 145 MG TAB PO SCH (08:28)
[2021-11-25] MEDS: METOPROLOL TARTRATE 25 MG TAB PO SCH (08:28)
[2021-11-25] MEDS: MONTELUKAST SODIUM 10 MG TAB PO SCH (08:28)
[2021-11-25] MEDS: COLLAGENASE 5 GM TUBE TP SCH (08:37)
[2021-11-25] MEDS: COLLAGENASE 5 GM TUBE TOP SCH (08:37)
[2021-11-25 09:24] LABS: LYMPHOCYTES % (MANUAL) 6 % (19-48); MONOCYTES % (MANUAL) 2 % (3.4-9.0); NEUTROPHILS % (MANUAL) 92 % (40-74); PLATELET ESTIMATE ADEQUATE; PLATELET MORPHOLOGY COMMENT NORMAL; RBC MORPHOLOGY COMMENT ABNORMAL
[2021-11-25] MEDS: METOPROLOL TARTRATE 50 MG TAB PO SCH (17:47)
[2021-11-25] MEDS: QUETIAPINE FUMARATE 25 MG TAB PO SCH (20:14)
[2021-11-25] MEDS: DONEPEZIL HCL 5 MG TAB PO SCH (20:14)
[2021-11-26] VITALS (8 sets, daily range): BP systolic 114–140; BP diastolic 71–92
[2021-11-26] MEDS: MIDODRINE HCL 5 MG TABLET PO SCH ×4 (05:26→23:57)
[2021-11-26 07:00] LABS: BASOPHILS % 0.3 % (0.0-1.0); EOSINOPHILS # (AUTO) 0.1 (0.0-0.4); EOSINOPHILS % 0.6 % (0.0-6.0); HEMOGLOBIN 10.9 g/dL (12.0-16.0); MEAN CORPUSCULAR HEMOGLOBIN 29.9 pg (28-32); MEAN CORPUSCULAR HGB CONC 30.3 g/dL (31-35); MEAN CORPUSCULAR VOLUME 98.6 fL (81-99); MONOCYTES # (AUTO) 0.8 (0.2-0.8); NEUTROPHILS # (AUTO) 9.5 (2.1-6.9); NEUTROPHILS % 81.7 % (38.7-80.0); PLATELET COUNT 300 x10e3/uL (140-360); RED BLOOD COUNT 3.65 x10e6/uL (3.6-5.1); RED CELL DISTRIBUTION WIDTH 19.8 % (11.7-14.4)
[2021-11-26 07:18] LABS: INR 1.24; PROTHROMBIN TIME 16.7 seconds (11.9-14.5)
[2021-11-26 07:23] LABS: ANION GAP 11.4 mmol/L (8-16); CALCIUM 7.1 mg/dL (8.4-10.2); CREATININE, SERUM 0.65 mg/dL (0.57-1.11); POTASSIUM 4.4 mmol/L (3.5-5.1)
[2021-11-26] MEDS: PANTOPRAZOLE SOD 40 MG TABEC PO SCH (11:19)
[2021-11-26] MEDS: DIGOXIN 0.125 MG TAB PO SCH (11:20)
[2021-11-26] MEDS: LEVOTHYROXINE SODIUM 50 MCG TAB PO SCH (11:20)
[2021-11-26] MEDS: FENOFIBRATE 145 MG TAB PO SCH (11:21)
[2021-11-26] MEDS: MONTELUKAST SODIUM 10 MG TAB PO SCH (11:21)
[2021-11-26] MEDS: METOPROLOL TARTRATE 50 MG TAB PO SCH ×2 (11:21→17:27)
[2021-11-26] MEDS: COLLAGENASE 5 GM TUBE TP SCH (17:26)
[2021-11-26] MEDS: COLLAGENASE 5 GM TUBE TOP SCH (17:26)
[2021-11-26] MEDS: DONEPEZIL HCL 5 MG TAB PO SCH (21:38)
[2021-11-26] MEDS: QUETIAPINE FUMARATE 25 MG TAB PO SCH (21:38)
[2021-11-26] MEDS: PREGABALIN 50 MG CAP PO SCH (21:52)
[2021-11-27] VITALS (8 sets, daily range): BP systolic 101–147; BP diastolic 60–81
[2021-11-27 06:05] LABS: BASOPHILS % 0.2 % (0.0-1.0); EOSINOPHILS # (AUTO) 0.1 (0.0-0.4); EOSINOPHILS % 1.1 % (0.0-6.0); HEMATOCRIT 36.8 % (34.2-44.1); LYMPHOCYTES # (AUTO) 1.3 (1.0-3.2); LYMPHOCYTES % 13.7 % (18.0-39.1); MEAN CORPUSCULAR HEMOGLOBIN 29.8 pg (28-32); MEAN CORPUSCULAR HGB CONC 29.9 g/dL (31-35); MEAN CORPUSCULAR VOLUME 99.7 fL (81-99); MONOCYTES # (AUTO) 0.8 (0.2-0.8); MONOCYTES % 8.1 % (4.4-11.3); NEUTROPHILS # (AUTO) 7.2 (2.1-6.9); NEUTROPHILS % 75.7 % (38.7-80.0); PLATELET COUNT 257 x10e3/uL (140-360); RED BLOOD COUNT 3.69 x10e6/uL (3.6-5.1); RED CELL DISTRIBUTION WIDTH 19.3 % (11.7-14.4)
[2021-11-27] MEDS: LEVOTHYROXINE SODIUM 50 MCG TAB PO SCH (06:28)
[2021-11-27] MEDS: MIDODRINE HCL 5 MG TABLET PO SCH ×3 (06:28→17:02)
[2021-11-27 06:39] LABS: ANION GAP 8.6 mmol/L (8-16); CALCIUM 7.6 mg/dL (8.4-10.2); CREATININE, SERUM 0.69 mg/dL (0.57-1.11); POTASSIUM 4.6 mmol/L (3.5-5.1)
[2021-11-27] MEDS: COLLAGENASE 5 GM TUBE TP SCH (08:40)
[2021-11-27] MEDS: COLLAGENASE 5 GM TUBE TOP SCH (08:40)
[2021-11-27] MEDS: MONTELUKAST SODIUM 10 MG TAB PO SCH (08:56)
[2021-11-27] MEDS: PANTOPRAZOLE SOD 40 MG TABEC PO SCH (08:56)
[2021-11-27] MEDS: FENOFIBRATE 145 MG TAB PO SCH (08:56)
[2021-11-27] MEDS: DIGOXIN 0.125 MG TAB PO SCH (08:56)
[2021-11-27] MEDS: PREGABALIN 50 MG CAP PO SCH (08:56)
[2021-11-27] MEDS: METOPROLOL TARTRATE 50 MG TAB PO SCH ×2 (08:56→17:03)
[2021-11-27 12:52] LABS: ANISOCYTOSIS MODERATE; HYPOCHROMASIA SLIGHT; PLATELET ESTIMATE ADEQUATE; PLATELET MORPHOLOGY COMMENT NORMAL; RBC MORPHOLOGY COMMENT ABNORMAL
[2021-11-27] MEDS: APIXAB 2.5 MG TABLET PO SCH (17:03)
[2021-11-27] MEDS: DONEPEZIL HCL 5 MG TAB PO SCH (21:55)
[2021-11-27] MEDS: QUETIAPINE FUMARATE 25 MG TAB PO SCH (21:55)
[2021-11-28] VITALS (7 sets, daily range): BP systolic 108–130; BP diastolic 53–66
[2021-11-28] MEDS: LEVOTHYROXINE SODIUM 50 MCG TAB PO SCH (06:16)
[2021-11-28] MEDS: PANTOPRAZOLE SOD 40 MG TABEC PO SCH (08:30)
[2021-11-28] MEDS: DIGOXIN 0.125 MG TAB PO SCH (09:45)
[2021-11-28] MEDS: METOPROLOL TARTRATE 50 MG TAB PO SCH ×2 (09:45→16:18)
[2021-11-28] MEDS: APIXAB 2.5 MG TABLET PO SCH ×2 (09:45→16:17)
[2021-11-28] MEDS: PREGABALIN 50 MG CAP PO SCH (09:45)
[2021-11-28] MEDS: COLLAGENASE 5 GM TUBE TOP SCH (09:46)
[2021-11-28] MEDS: FENOFIBRATE 145 MG TAB PO SCH (09:46)
[2021-11-28] MEDS: MONTELUKAST SODIUM 10 MG TAB PO SCH (09:46)
[2021-11-28] MEDS: COLLAGENASE 5 GM TUBE TP SCH (09:46)
[2021-11-28] MEDS: QUETIAPINE FUMARATE 25 MG TAB PO SCH (22:32)
[2021-11-28] MEDS: DONEPEZIL HCL 5 MG TAB PO SCH (22:32)
[2021-11-29] VITALS (8 sets, daily range): BP systolic 122–148; BP diastolic 58–87
[2021-11-29] MEDS: LEVOTHYROXINE SODIUM 50 MCG TAB PO SCH (06:06)
[2021-11-29] MEDS: PANTOPRAZOLE SOD 40 MG TABEC PO SCH (08:00)
[2021-11-29] MEDS: APIXAB 2.5 MG TABLET PO SCH ×2 (09:26→16:46)
[2021-11-29] MEDS: DIGOXIN 0.125 MG TAB PO SCH (09:26)
[2021-11-29] MEDS: METOPROLOL TARTRATE 50 MG TAB PO SCH ×2 (09:27→16:46)
[2021-11-29] MEDS: FENOFIBRATE 145 MG TAB PO SCH (09:27)
[2021-11-29] MEDS: COLLAGENASE 5 GM TUBE TOP SCH (09:27)
[2021-11-29] MEDS: MONTELUKAST SODIUM 10 MG TAB PO SCH (09:27)
[2021-11-29] MEDS: PREGABALIN 50 MG CAP PO SCH (09:27)
[2021-11-29] MEDS: COLLAGENASE 5 GM TUBE TP SCH (09:27)
[2021-11-29] MEDS ORDERED: SEROQUEL25 MG PO (13:08)
[2021-11-29] MEDS ORDERED: ARICEPT5 MG PO (13:08)
[2021-11-29] MEDS ORDERED: FENOFIBRATE145 MG PO (13:08)
[2021-11-29] MEDS ORDERED: DIGOXIN125 MCG PO (13:08)
[2021-11-29] MEDS ORDERED: METOPROLOL TART50 MG PO (13:08)
[2021-11-29] MEDS ORDERED: ELIQUIS2.5 MG PO (13:08)
[2021-11-29] MEDS: QUETIAPINE FUMARATE 25 MG TAB PO SCH (22:01)
[2021-11-29] MEDS: DONEPEZIL HCL 5 MG TAB PO SCH (22:01)
[2021-11-30] VITALS: BP 116/58
[2021-11-30 04:00] VITALS: BP 132/73
[2021-11-30] MEDS: LEVOTHYROXINE SODIUM 50 MCG TAB PO SCH (05:57)
[2021-11-30 07:40] VITALS: BP 120/63
[2021-11-30 08:44] VITALS: BP 120/63
[2021-11-30] MEDS: FENOFIBRATE 145 MG TAB PO SCH (09:30)
[2021-11-30] MEDS: METOPROLOL TARTRATE 50 MG TAB PO SCH (09:30)
[2021-11-30] MEDS: MONTELUKAST SODIUM 10 MG TAB PO SCH (09:30)
[2021-11-30] MEDS: APIXAB 2.5 MG TABLET PO SCH (09:30)
[2021-11-30] MEDS: PANTOPRAZOLE SOD 40 MG TABEC PO SCH (09:30)
[2021-11-30] MEDS: PREGABALIN 50 MG CAP PO SCH (09:30)
[2021-11-30] MEDS: COLLAGENASE 5 GM TUBE TP SCH (09:31)
[2021-11-30] MEDS: COLLAGENASE 5 GM TUBE TOP SCH (09:31)
[2021-11-30 11:43] VITALS: BP 140/84
[2021-11-30] MEDS ORDERED: CIPRO500 MG PO (14:07)
[2021-11-30] MEDS ORDERED: DOXYCYCLINE HY100 MG PO (14:08)
[2021-11-30 15:43] VITALS: BP 142/66
[2021-12-01] MEDS ORDERED: Vancomycin IV 1 GM in SODIUM CHLORIDE 0.9% 250ML 250 ML IV SCH (09:00)
[2021-12-01] MEDS ORDERED: DIGOXIN 0.125 MG TAB PO SCH (09:00)
== END 2021-11-30 16:41 | DRG 871 ==
LOC: MED/SURG3 16:29 → UNDODISIN 11-30 16:41
PROVIDERS: ADMIT Internal Medicine; ATTEND Internal Medicine
PROC: 30233K1 Transfusion of Nonautologous Frozen Plasma into Peripheral Vein, Percutaneous Approach (ICD-10-PCS; principal; 2021-11-22)
PROC: 30233N1 Transfusion of Nonautologous Red Blood Cells into Peripheral Vein, Percutaneous Approach (ICD-10-PCS; 2021-11-22)
PROC: 3E03329 Introduction of Other Anti-infective into Peripheral Vein, Percutaneous Approach (ICD-10-PCS; 2021-11-22)
DX: A41.9 Sepsis, unspecified organism (principal); L89.154 Pressure ulcer of sacral region, stage 4; L89.323 Pressure ulcer of left buttock, stage 3; D68.9 Coagulation defect, unspecified; N17.9 Acute kidney failure, unspecified; L03.317 Cellulitis of buttock; M00.9 Pyogenic arthritis, unspecified; E44.0 Moderate protein-calorie malnutrition; Z68.1 Body mass index [BMI] 19.9 or less, adult; I49.5 Sick sinus syndrome; Z95.0 Presence of cardiac pacemaker; I73.9 Peripheral vascular disease, unspecified; I48.91 Unspecified atrial fibrillation; J44.9 Chronic obstructive pulmonary disease, unspecified; E03.9 Hypothyroidism, unspecified; R29.6 Repeated falls; Z88.0 Allergy status to penicillin; Z88.2 Allergy status to sulfonamides; I12.9 Hypertensive chronic kidney disease with stage 1 through stage 4 chronic kidney disease, or unspecified chronic kidney disease; N18.30 Chronic kidney disease, stage 3 unspecified; Z79.899 Other long term (current) drug therapy; F03.90 Unspecified dementia, unspecified severity, without behavioral disturbance, psychotic disturbance, mood disturbance, and anxiety; E86.0 Dehydration; L89.312 Pressure ulcer of right buttock, stage 2; M79.7 Fibromyalgia; M81.0 Age-related osteoporosis without current pathological fracture; Z75.1 Person awaiting admission to adequate facility elsewhere; Z20.822 Contact with and (suspected) exposure to COVID-19; I25.10 Atherosclerotic heart disease of native coronary artery without angina pectoris; Z99.89 Dependence on other enabling machines and devices
CPT/HCPCS: 36415; 70450; 71045; 72125; 72192; 72193; 77075; 78315; 78800; 80048; 80053; 80061; 80162; 80202; 80307; 81001; 82948; 83036; 83540; 83605; 83735; 84100; 84443; 84466; 85025; 85610; 85651; 85730; 86141; 86850; 86900; 86920; 87040; 87086; 93306; 93880; 93971; 96360; 97139; 99251; A9503; A9570; J2185; J3370; J3430; J7030; J7042; J7050; P9016; P9017; Q9967

== ENCOUNTER 2021-12-06 08:51 | Inpatient (IN) | payer MEDICARE ==
[~2021-12-06] VITALS: Ht 154.9 cm; Wt 68.0 kg
[~2021-12-06 08:51] MED LIST changes: +ARICEPT5 MG PO; +CIPRO500 MG PO; +DIGOXIN125 MCG PO; +DOXYCYCLINE HY100 MG PO; +ELIQUIS2.5 MG PO; +FENOFIBRATE145 MG PO; +METOPROLOL TART50 MG PO; +SEROQUEL25 MG PO
[2021-12-06] MEDS ORDERED: SODIUM CHLORIDE 0.9% 500ML 500 ML IV ONE (09:30)
[2021-12-06 10:04] LABS: INR 1.13; PROTHROMBIN TIME 15.5 seconds (11.9-14.5)
[2021-12-06 10:05] LABS: PARTIAL THROMBOPLASTIN TIME 30.3 seconds (23.8-35.5)
[2021-12-06 10:14] LABS: ALBUMIN/GLOBULIN RATIO 0.4 (0.8-2.0); ANION GAP 12.4 mmol/L (8-16); CREATININE, SERUM 0.84 mg/dL (0.57-1.11); MAGNESIUM 1.9 MG/DL (1.3-2.1); POTASSIUM 4.4 mmol/L (3.5-5.1)
[2021-12-06 10:16] LABS: BASOPHILS # (AUTO) 0.1 (0.0-0.1); BASOPHILS % 0.4 % (0.0-1.0); HEMATOCRIT 37.6 % (34.2-44.1); LYMPHOCYTES # (AUTO) 1.2 (1.0-3.2); LYMPHOCYTES % 8.3 % (18.0-39.1); MEAN CORPUSCULAR HEMOGLOBIN 29.7 pg (28-32); MEAN CORPUSCULAR HGB CONC 29.3 g/dL (31-35); MEAN CORPUSCULAR VOLUME 101.6 fL (81-99); MONOCYTES # (AUTO) 0.8 (0.2-0.8); MONOCYTES % 5.8 % (4.4-11.3); NEUTROPHILS # (AUTO) 11.7 (2.1-6.9); NEUTROPHILS % 84.3 % (38.7-80.0); PLATELET COUNT 306 x10e3/uL (140-360); RED CELL DISTRIBUTION WIDTH 17.6 % (11.7-14.4)
[2021-12-06 10:29] LABS: CLARITY,URINE TURBID (CLEAR); COLOR,URINE YELLOW (YELLOW)
[2021-12-06 10:30] LABS: KETONES,URINE NEGATIVE (NEGATIVE); LEUKOCYTE ESTERASE ,URINE SMALL (NEGATIVE); NITRITE,URINE NEGATIVE (NEGATIVE); PROTEIN,URINE DIPSTICK 2+ (NEGATIVE); URINE UROBILINOGEN 0.2 mg/dL (0.2 - 1)
[2021-12-06 10:34] LABS: CREATINE KINASE MB 2.5 ng/mL (0-5.0); THYROID STIMULATING HORMONE 5.144 uIU/mL (0.350-4.940)
[2021-12-06 10:35] LABS: BACTERIA,URINE FEW /HPF; EPITHELIAL CELLS,URINE FEW /LPF; RBC,URINE >50 /HPF (0-5); WBC,URINE (MAN) >50 /HPF (0-5)
[2021-12-06] MEDS: MEROPENEM 1 GM in SODIUM CHLORIDE 0.9% 100 ML IV SCH ×2 (12:02→21:36)
[2021-12-06] MEDS ORDERED: ONDANSETRON HCL INJ 2MG/ML 2ML 2 MG/ML VIAL IV PRN ×2 (12:45→14:15)
[2021-12-06] MEDS ORDERED: POTASSIUM CHLORIDE 20 MEQ TAB CR PO PRN (14:15)
[2021-12-06] MEDS ORDERED: ACETAMINOPHEN 325 MG TAB PO PRN (14:15)
[2021-12-06] MEDS ORDERED: DIPHENHYDRAMINE HCL 25 MG CAP PO PRN (14:15)
[2021-12-06] MEDS ORDERED: LIDOCAINE 4% PATCH TP PRN (14:15)
[2021-12-06] MEDS ORDERED: DOCUSATE SODIUM 100 MG CAP PO PRN (14:15)
[2021-12-06] MEDS ORDERED: ALBUTEROL/IPRATROPIUM 3 ML NEB NEB PRN (14:15)
[2021-12-06] MEDS ORDERED: BENZONATATE 100 MG CAP PO PRN (14:15)
[2021-12-06] MEDS ORDERED: SIMETHICONE 80 MG CHEW PO PRN (14:15)
[2021-12-06] MEDS ORDERED: DEXTROSE 50% SYRINGE 50 ML IV PRN (14:15)
[2021-12-06] MEDS ORDERED: HYDRALAZINE HCL 20 MG/ML VIAL IV PRN (14:15)
[2021-12-06 15:28] VITALS: BP 147/85
[2021-12-06 15:47] VITALS: BP 147/85
[2021-12-06 16:32] VITALS: BP 147/85
[2021-12-06] MEDS: ENOXAPARIN SOD INJ 40 MG/0.4 ML SYR SC SCH (17:09)
[2021-12-06 19:13] LABS: CREATINE KINASE MB 3.2 ng/mL (0-5.0)
[2021-12-06 20:00] VITALS: BP 149/55
[2021-12-06] MEDS ORDERED: SODIUM CHLORIDE 0.9% 100 ML ONE (21:31)
[2021-12-06] MEDS ORDERED: SODIUM CHLORIDE 0.9% 250ML 250 ML ONE (21:32)
[2021-12-07] VITALS (7 sets, daily range): BP systolic 122–156; BP diastolic 46–70
[2021-12-07 06:36] LABS: BASOPHILS % 0.3 % (0.0-1.0); HEMATOCRIT 32.7 % (34.2-44.1); HEMOGLOBIN 9.7 g/dL (12.0-16.0); LYMPHOCYTES # (AUTO) 1.6 (1.0-3.2); LYMPHOCYTES % 11.7 % (18.0-39.1); MEAN CORPUSCULAR HEMOGLOBIN 29.1 pg (28-32); MEAN CORPUSCULAR HGB CONC 29.7 g/dL (31-35); MEAN CORPUSCULAR VOLUME 98.2 fL (81-99); MONOCYTES # (AUTO) 0.9 (0.2-0.8); MONOCYTES % 6.7 % (4.4-11.3); NEUTROPHILS # (AUTO) 10.9 (2.1-6.9); NEUTROPHILS % 80.3 % (38.7-80.0); PLATELET COUNT 327 x10e3/uL (140-360); RED BLOOD COUNT 3.33 x10e6/uL (3.6-5.1); RED CELL DISTRIBUTION WIDTH 17.4 % (11.7-14.4)
[2021-12-07 08:22] LABS: ALBUMIN 1.9 g/dL (3.5-5.0); ALBUMIN/GLOBULIN RATIO 0.5 (0.8-2.0); ANION GAP 13.3 mmol/L (8-16); CALCIUM 7.7 mg/dL (8.4-10.2); CREATININE, SERUM 0.89 mg/dL (0.57-1.11); POTASSIUM 4.3 mmol/L (3.5-5.1)
[2021-12-07] MEDS: MEROPENEM 1 GM in SODIUM CHLORIDE 0.9% 100 ML IV SCH ×2 (09:01→22:20)
[2021-12-07] MEDS: PANTOPRAZOLE SOD 40 MG TABEC PO SCH (09:01)
[2021-12-07 09:55] LABS: MAGNESIUM 2.3 MG/DL (1.3-2.1); PHOSPHORUS 3.6 MG/DL (2.3-4.7)
[2021-12-07 10:10] LABS: CREATINE KINASE MB 2.7 ng/mL (0-5.0)
[2021-12-07] MEDS: DEXTROSE 5%/0.9% SOD CHL 1,000 ML IV SCH (16:00)
[2021-12-07] MEDS: ENOXAPARIN SOD INJ 40 MG/0.4 ML SYR SC SCH (17:00)
[2021-12-08] VITALS (7 sets, daily range): BP systolic 133–157; BP diastolic 51–63
[2021-12-08] MEDS: DEXTROSE 5%/0.9% SOD CHL 1,000 ML IV SCH ×2 (02:56→14:11)
[2021-12-08 06:51] LABS: BASOPHILS % 0.3 % (0.0-1.0); EOSINOPHILS # (AUTO) 0.1 (0.0-0.4); EOSINOPHILS % 0.8 % (0.0-6.0); HEMATOCRIT 28.3 % (34.2-44.1); HEMOGLOBIN 8.4 g/dL (12.0-16.0); MEAN CORPUSCULAR HEMOGLOBIN 29.7 pg (28-32); MEAN CORPUSCULAR HGB CONC 29.7 g/dL (31-35); MONOCYTES # (AUTO) 0.5 (0.2-0.8); MONOCYTES % 8.8 % (4.4-11.3); NEUTROPHILS # (AUTO) 4.3 (2.1-6.9); NEUTROPHILS % 72.4 % (38.7-80.0); PLATELET COUNT 213 x10e3/uL (140-360); RED BLOOD COUNT 2.83 x10e6/uL (3.6-5.1); RED CELL DISTRIBUTION WIDTH 17.9 % (11.7-14.4)
[2021-12-08 07:10] LABS: ANION GAP 7.9 mmol/L (8-16); CALCIUM 7.5 mg/dL (8.4-10.2); CREATININE, SERUM 0.74 mg/dL (0.57-1.11); POTASSIUM 3.9 mmol/L (3.5-5.1)
[2021-12-08] MEDS: PANTOPRAZOLE SOD 40 MG TABEC PO SCH (07:30)
[2021-12-08] MEDS ORDERED: BALSAM PERU/CASTOR OIL 60 GM OINT...G. TP SCH (09:00)
[2021-12-08] MEDS ORDERED: COLLAGENASE 5 GM TUBE TP SCH (09:00)
[2021-12-08] MEDS: MEROPENEM 1 GM in SODIUM CHLORIDE 0.9% 100 ML IV SCH ×2 (09:00→20:37)
[2021-12-08] MEDS ORDERED: FLUCONAZOLE 100 MG TAB PO SCH (14:45)
[2021-12-08] MEDS ORDERED: FUROSEMIDE INJ 10 MG/ML 2 ML VIAL IV SCH (15:45)
[2021-12-08] MEDS: FUROSEMIDE INJ 10 MG/ML 2 ML VIAL IV SCH (17:00)
[2021-12-08] MEDS: ENOXAPARIN SOD INJ 40 MG/0.4 ML SYR SC SCH (17:00)
[2021-12-08] MEDS: COLLAGENASE 5 GM TUBE TP SCH (20:37)
[2021-12-08] MEDS: BALSAM PERU/CASTOR OIL 60 GM OINT...G. TP SCH (20:37)
[2021-12-09] VITALS (7 sets, daily range): BP systolic 137–152; BP diastolic 59–95
[2021-12-09] MEDS: DEXTROSE 5%/0.9% SOD CHL 1,000 ML IV SCH ×2 (05:05→22:25)
[2021-12-09] MEDS: PANTOPRAZOLE SOD 40 MG TABEC PO SCH (07:30)
[2021-12-09] MEDS: MEROPENEM 1 GM in SODIUM CHLORIDE 0.9% 100 ML IV SCH ×2 (09:00→21:13)
[2021-12-09] MEDS: FUROSEMIDE INJ 10 MG/ML 2 ML VIAL IV SCH ×2 (09:00→17:00)
[2021-12-09 11:29] LABS: BASOPHILS % 0.5 % (0.0-1.0); EOSINOPHILS % 0.5 % (0.0-6.0); HEMATOCRIT 37.4 % (34.2-44.1); HEMOGLOBIN 10.9 g/dL (12.0-16.0); LYMPHOCYTES # (AUTO) 1.3 (1.0-3.2); LYMPHOCYTES % 15.3 % (18.0-39.1); MEAN CORPUSCULAR HEMOGLOBIN 29.1 pg (28-32); MEAN CORPUSCULAR HGB CONC 29.1 g/dL (31-35); MEAN CORPUSCULAR VOLUME 99.7 fL (81-99); MONOCYTES # (AUTO) 0.7 (0.2-0.8); MONOCYTES % 8.5 % (4.4-11.3); NEUTROPHILS # (AUTO) 6.2 (2.1-6.9); NEUTROPHILS % 74.1 % (38.7-80.0); PLATELET COUNT 224 x10e3/uL (140-360); RED BLOOD COUNT 3.75 x10e6/uL (3.6-5.1); RED CELL DISTRIBUTION WIDTH 17.6 % (11.7-14.4)
[2021-12-09 11:50] LABS: ALBUMIN 1.7 g/dL (3.5-5.0); ALBUMIN/GLOBULIN RATIO 0.4 (0.8-2.0); ANION GAP 10.7 mmol/L (8-16); CALCIUM 7.9 mg/dL (8.4-10.2); CREATININE, SERUM 0.66 mg/dL (0.57-1.11); POTASSIUM 3.7 mmol/L (3.5-5.1)
[2021-12-09] MEDS: FLUCONAZOLE 100 MG TAB PO SCH (14:50)
[2021-12-09] MEDS: ENOXAPARIN SOD INJ 40 MG/0.4 ML SYR SC SCH (17:00)
[2021-12-09] MEDS: COLLAGENASE 5 GM TUBE TP SCH (21:13)
[2021-12-09] MEDS: BALSAM PERU/CASTOR OIL 60 GM OINT...G. TP SCH (21:13)
[2021-12-09] MEDS: MELATONIN 5 MG TABLET PO PRN (22:49)
[2021-12-10] VITALS (8 sets, daily range): BP systolic 125–152; BP diastolic 75–96
[2021-12-10] MEDS: PANTOPRAZOLE SOD 40 MG TABEC PO SCH (09:19)
[2021-12-10] MEDS: FUROSEMIDE INJ 10 MG/ML 2 ML VIAL IV SCH (09:19)
[2021-12-10] MEDS: MEROPENEM 1 GM in SODIUM CHLORIDE 0.9% 100 ML IV SCH ×2 (09:19→22:14)
[2021-12-10] MEDS ORDERED: ONDANSETRON HCL 4 MG ORAL DISINTEGRATING TAB PO PRN (11:45)
[2021-12-10] MEDS: FLUCONAZOLE 100 MG TAB PO SCH (15:59)
[2021-12-10] MEDS: ENOXAPARIN SOD INJ 40 MG/0.4 ML SYR SC SCH (17:27)
[2021-12-10] MEDS: BALSAM PERU/CASTOR OIL 60 GM OINT...G. TP SCH (21:00)
[2021-12-10] MEDS: COLLAGENASE 5 GM TUBE TP SCH (21:00)
[2021-12-10] MEDS ORDERED: METOPROLOL TARTRATE 50 MG TAB PO ONE ×2 (23:45)
[2021-12-10] MEDS: MELATONIN 5 MG TABLET PO PRN (23:52)
[2021-12-11] VITALS (8 sets, daily range): BP systolic 116–153; BP diastolic 59–91
[2021-12-11 05:50] LABS: BASOPHILS % 0.4 % (0.0-1.0); EOSINOPHILS # (AUTO) 0.1 (0.0-0.4); EOSINOPHILS % 1.2 % (0.0-6.0); HEMATOCRIT 31.6 % (34.2-44.1); HEMOGLOBIN 9.6 g/dL (12.0-16.0); LYMPHOCYTES # (AUTO) 1.5 (1.0-3.2); LYMPHOCYTES % 20.3 % (18.0-39.1); MEAN CORPUSCULAR HEMOGLOBIN 29.2 pg (28-32); MEAN CORPUSCULAR HGB CONC 30.4 g/dL (31-35); MONOCYTES # (AUTO) 0.6 (0.2-0.8); MONOCYTES % 8.2 % (4.4-11.3); NEUTROPHILS # (AUTO) 5.2 (2.1-6.9); NEUTROPHILS % 68.8 % (38.7-80.0); PLATELET COUNT 221 x10e3/uL (140-360); RED BLOOD COUNT 3.29 x10e6/uL (3.6-5.1); RED CELL DISTRIBUTION WIDTH 17.4 % (11.7-14.4)
[2021-12-11 06:11] LABS: ANION GAP 10.4 mmol/L (8-16); CALCIUM 7.5 mg/dL (8.4-10.2); CREATININE, SERUM 0.62 mg/dL (0.57-1.11); POTASSIUM 3.4 mmol/L (3.5-5.1)
[2021-12-11] MEDS ORDERED: SODIUM CHLORIDE 0.9% 250ML 250 ML ONE (08:23)
[2021-12-11] MEDS: MEROPENEM 1 GM in SODIUM CHLORIDE 0.9% 100 ML IV SCH ×2 (09:51→21:35)
[2021-12-11] MEDS: LEVOTHYROXINE SODIUM 50 MCG TAB PO SCH (09:52)
[2021-12-11] MEDS: PANTOPRAZOLE SOD 40 MG TABEC PO SCH (09:52)
[2021-12-11] MEDS: APIXAB 2.5 MG TABLET PO SCH ×2 (09:52→16:57)
[2021-12-11] MEDS: DIGOXIN 0.125 MG TAB PO SCH (09:52)
[2021-12-11] MEDS: FENOFIBRATE 145 MG TAB PO SCH (09:52)
[2021-12-11] MEDS: METOPROLOL TARTRATE 50 MG TAB PO SCH ×2 (09:53→16:58)
[2021-12-11] MEDS: ASPIRIN 81 MG CHEW TAB PO SCH (09:54)
[2021-12-11] MEDS ORDERED: DIFLUCAN100 MG PO (11:26)
[2021-12-11] MEDS: FLUCONAZOLE 100 MG TAB PO SCH (14:35)
[2021-12-11] MEDS: DONEPEZIL HCL 5 MG TAB PO SCH (21:37)
[2021-12-11] MEDS: QUETIAPINE FUMARATE 25 MG TAB PO SCH (21:37)
[2021-12-11] MEDS: COLLAGENASE 5 GM TUBE TP SCH (21:44)
[2021-12-11] MEDS: BALSAM PERU/CASTOR OIL 60 GM OINT...G. TP SCH (21:44)
[2021-12-12 04:00] VITALS: BP 136/57
[2021-12-12 08:00] VITALS: BP 137/65
[2021-12-12] MEDS: PANTOPRAZOLE SOD 40 MG TABEC PO SCH (08:28)
[2021-12-12] MEDS: LEVOTHYROXINE SODIUM 50 MCG TAB PO SCH (08:28)
[2021-12-12 08:29] VITALS: BP 137/65
[2021-12-12] MEDS: APIXAB 2.5 MG TABLET PO SCH ×2 (09:42→17:50)
[2021-12-12] MEDS: METOPROLOL TARTRATE 50 MG TAB PO SCH ×2 (09:43→17:50)
[2021-12-12] MEDS: FENOFIBRATE 145 MG TAB PO SCH (09:43)
[2021-12-12] MEDS: ASPIRIN 81 MG CHEW TAB PO SCH (09:44)
[2021-12-12] MEDS: DIGOXIN 0.125 MG TAB PO SCH (09:44)
[2021-12-12] MEDS: MEROPENEM 1 GM in SODIUM CHLORIDE 0.9% 100 ML IV SCH ×2 (09:44→20:28)
[2021-12-12] MEDS ORDERED: FUROSEMIDE INJ 10 MG/ML 4 ML VIAL IV ONE (13:15)
[2021-12-12] MEDS ORDERED: POTASSIUM CHLORIDE 20 MEQ TAB CR PO ONE (14:00)
[2021-12-12] MEDS: FLUCONAZOLE 100 MG TAB PO SCH (14:03)
[2021-12-12 16:56] VITALS: BP 124/57
[2021-12-12] MEDS: FUROSEMIDE INJ 10 MG/ML 4 ML VIAL IV SCH (20:23)
[2021-12-12] MEDS: DONEPEZIL HCL 5 MG TAB PO SCH (20:24)
[2021-12-12] MEDS: QUETIAPINE FUMARATE 25 MG TAB PO SCH (20:25)
[2021-12-12 20:27] VITALS: BP 131/72
[2021-12-12] MEDS: BALSAM PERU/CASTOR OIL 60 GM OINT...G. TP SCH (20:29)
[2021-12-12] MEDS: COLLAGENASE 5 GM TUBE TP SCH (20:30)
[2021-12-12 20:40] VITALS: BP 131/72
[2021-12-13 00:26] VITALS: BP 116/67
[2021-12-13 04:20] VITALS: BP 119/65
[2021-12-13 08:01] VITALS: BP 134/71
[2021-12-13] MEDS: PANTOPRAZOLE SOD 40 MG TABEC PO SCH (08:58)
[2021-12-13] MEDS: LEVOTHYROXINE SODIUM 50 MCG TAB PO SCH (08:58)
[2021-12-13] MEDS: FUROSEMIDE INJ 10 MG/ML 4 ML VIAL IV SCH (08:59)
[2021-12-13] MEDS: MEROPENEM 1 GM in SODIUM CHLORIDE 0.9% 100 ML IV SCH (08:59)
[2021-12-13] MEDS: APIXAB 2.5 MG TABLET PO SCH (09:00)
[2021-12-13] MEDS: DIGOXIN 0.125 MG TAB PO SCH (09:00)
[2021-12-13] MEDS: ASPIRIN 81 MG CHEW TAB PO SCH (09:00)
[2021-12-13] MEDS: FENOFIBRATE 145 MG TAB PO SCH (09:01)
[2021-12-13] MEDS: METOPROLOL TARTRATE 50 MG TAB PO SCH (09:01)
[2021-12-13 12:39] VITALS: BP 105/62
== END 2021-12-13 14:29 | DRG 757 ==
LOC: ER 09:11 → ERHOLD 12:40 → MED/SURG 14:10
PROVIDERS: ADMIT Internal Medicine; ATTEND Internal Medicine
DX: B37.49 Other urogenital candidiasis (principal); G93.41 Metabolic encephalopathy; N17.9 Acute kidney failure, unspecified; E44.1 Mild protein-calorie malnutrition; I48.91 Unspecified atrial fibrillation; Z79.01 Long term (current) use of anticoagulants; J44.9 Chronic obstructive pulmonary disease, unspecified; I10 Essential (primary) hypertension; M79.7 Fibromyalgia; G62.9 Polyneuropathy, unspecified; Z95.810 Presence of automatic (implantable) cardiac defibrillator; Z88.5 Allergy status to narcotic agent; Z88.0 Allergy status to penicillin; Z88.2 Allergy status to sulfonamides; L89.150 Pressure ulcer of sacral region, unstageable; E86.0 Dehydration; Z68.28 Body mass index [BMI] 28.0-28.9, adult
CPT/HCPCS: 36415; 70450; 71045; 80048; 80053; 81001; 82140; 82550; 82553; 82948; 83735; 83880; 84100; 84132; 84443; 84484; 85025; 85610; 85730; 87040; 87086; 93005; 94799; 97139; 99251; 99284; J1650; J1940; J2185; J7040; J7042; J7050

== ENCOUNTER 2022-03-12 23:11 | Emergency (ER) | payer MEDICARE, OTHER ==
[~2022-03-12] VITALS: Ht 307.3 cm; Wt 68.0 kg
[~2022-03-12 23:11] MED LIST changes: +DIFLUCAN100 MG PO
[2022-03-12] MEDS ORDERED: ONDANSETRON HCL 4 MG ORAL DISINTEGRATING TAB PO ONE (23:45)
[2022-03-13 01:28] VITALS: BP 140/66
== END 2022-03-13 02:15 ==
LOC: ER 23:26
DX: S00.83XA Contusion of other part of head, initial encounter (principal); S70.01XA Contusion of right hip, initial encounter; M13.851 Other specified arthritis, right hip; M54.2 Cervicalgia; W01.0XXA Fall on same level from slipping, tripping and stumbling without subsequent striking against object, initial encounter; Y92.89 Other specified places as the place of occurrence of the external cause; F03.90 Unspecified dementia, unspecified severity, without behavioral disturbance, psychotic disturbance, mood disturbance, and anxiety; I10 Essential (primary) hypertension; E78.5 Hyperlipidemia, unspecified; J44.9 Chronic obstructive pulmonary disease, unspecified; Z95.810 Presence of automatic (implantable) cardiac defibrillator
CPT/HCPCS: 70450; 72125; 73502 ×2; 99284; Q0162

== ENCOUNTER 2022-07-13 17:44 | Inpatient (IN) | payer MEDICARE ==
[~2022-07-13] VITALS: Ht 307.3 cm; Wt 49.4 kg
[2022-07-13 18:19] LABS: BASOPHILS % 0.3 % (0.0-1.0); EOSINOPHILS # (AUTO) 0.1 (0.0-0.4); EOSINOPHILS % 0.7 % (0.0-6.0); HEMATOCRIT 41.5 % (34.2-44.1); LYMPHOCYTES # (AUTO) 2.6 (1.0-3.2); LYMPHOCYTES % 17.7 % (18.0-39.1); MEAN CORPUSCULAR HEMOGLOBIN 28.4 pg (28-32); MEAN CORPUSCULAR HGB CONC 28.9 g/dL (31-35); MEAN CORPUSCULAR VOLUME 98.1 fL (81-99); MONOCYTES # (AUTO) 0.8 (0.2-0.8); MONOCYTES % 5.6 % (4.4-11.3); NEUTROPHILS % 74.6 % (38.7-80.0); PLATELET COUNT 179 x10e3/uL (140-360); RED BLOOD COUNT 4.23 x10e6/uL (3.6-5.1); RED CELL DISTRIBUTION WIDTH 16.8 % (11.7-14.4)
[2022-07-13] MEDS ORDERED: HYDRALAZINE HCL 20 MG/ML VIAL IV STA (18:25)
[2022-07-13] MEDS ORDERED: FUROSEMIDE INJ 10 MG/ML 4 ML VIAL IV STA (18:25)
[2022-07-13] MEDS ORDERED: LEVOFLOXACIN 750MG/D5W 150ML 150 ML IV SCH (18:30)
[2022-07-13 18:48] LABS: ALBUMIN 3.2 g/dL (3.5-5.0); ALBUMIN/GLOBULIN RATIO 0.7 (0.8-2.0); ANION GAP 16.6 mmol/L (8-16); CALCIUM 8.6 mg/dL (8.4-10.2); CREATININE, SERUM 1.01 mg/dL (0.57-1.11); POTASSIUM 4.6 mmol/L (3.5-5.1)
[2022-07-13 18:55] LABS: CREATINE KINASE MB 1.6 ng/mL (0-5.0)
[2022-07-13] MEDS ORDERED: METHYLPREDNISOLONE SOD SUCC 40 MG/ML VIAL 1ML IV SCH (20:15)
[2022-07-13] MEDS ORDERED: IOPAMIDOL 370 MG/ML 100 ML INFUS..BTL INJ ONE (20:53)
[2022-07-13 20:55] LABS: ABG HCO3 30 mmol/L (22-26); ABG PCO2 49 mmHg (35-45); ABG PH 7.39 (7.35-7.45); ABG PO2 355 mmHg (80-105); ABG TCO2 31
[2022-07-13 21:26] VITALS: BP 158/86
[2022-07-13 21:30] VITALS: BP 158/86
[2022-07-13] MEDS ORDERED: FUROSEMIDE40 MG PO (21:41)
[2022-07-13] MEDS ORDERED: ARICEPT10 MG PO (21:41)
[2022-07-13] MEDS ORDERED: ACETAMINOPHEN325 M1 PO (21:41)
[2022-07-13] MEDS ORDERED: ULTRAM 50MG50 MG PO (21:41)
[2022-07-13] MEDS ORDERED: PACERONE200 MG PO (21:41)
[2022-07-13 21:54] VITALS: BP 158/86
[2022-07-13 22:00] VITALS: BP 148/95
[2022-07-13] MEDS ORDERED: HYDRALAZINE HCL 20 MG/ML VIAL IV PRN ×2 (22:00→23:30)
[2022-07-13] MEDS: APIXAB 2.5 MG TABLET PO SCH (22:21)
[2022-07-13] MEDS: DONEPEZIL HCL 5 MG TAB PO SCH (22:22)
[2022-07-13 23:00] VITALS: BP 146/66
[2022-07-13] MEDS ORDERED: DEXTROSE 50% SYRINGE 50 ML IV PRN (23:30)
[2022-07-13] MEDS ORDERED: ALBUTEROL/IPRATROPIUM 3 ML NEB NEB PRN (23:30)
[2022-07-13] MEDS ORDERED: ONDANSETRON HCL INJ 2MG/ML 2ML 2 MG/ML VIAL IV PRN (23:30)
[2022-07-13] MEDS ORDERED: DIPHENHYDRAMINE HCL 25 MG CAP PO PRN (23:30)
[2022-07-13] MEDS ORDERED: REMDESIVIR 200MG 200 MG in SODIUM CHLORIDE 0.9% 100 ML IV ONE (23:30)
[2022-07-13] MEDS ORDERED: LIDOCAINE 4% PATCH TP PRN (23:30)
[2022-07-13] MEDS ORDERED: DOCUSATE SODIUM 100 MG CAP PO PRN (23:30)
[2022-07-13] MEDS ORDERED: SIMETHICONE 80 MG CHEW PO PRN (23:30)
[2022-07-13] MEDS ORDERED: POTASSIUM CHLORIDE 20 MEQ TAB CR PO PRN (23:30)
[2022-07-13] MEDS: ACETAMINOPHEN 325 MG TAB PO PRN (23:31)
[2022-07-14] VITALS (14 sets, daily range): BP systolic 98–160; BP diastolic 59–117
[2022-07-14] MEDS ORDERED: SODIUM CHLORIDE 0.9% 100 ML ONE ×2 (00:04→20:35)
[2022-07-14 03:32] LABS: CREATINE KINASE MB 1.3 ng/mL (0-5.0)
[2022-07-14] MEDS: LEVOTHYROXINE SODIUM 50 MCG TAB PO SCH (07:24)
[2022-07-14] MEDS: APIXAB 2.5 MG TABLET PO SCH ×2 (07:51→17:43)
[2022-07-14] MEDS: AMIODARONE HCL 200 MG TAB PO SCH (07:52)
[2022-07-14] MEDS: PANTOPRAZOLE SOD 40 MG TABEC PO SCH (07:52)
[2022-07-14] MEDS: FUROSEMIDE INJ 10 MG/ML 4 ML VIAL IV SCH (07:52)
[2022-07-14] MEDS: ASPIRIN 81 MG CHEW TAB PO SCH (07:52)
[2022-07-14] MEDS: DEXAMETHASONE SOD PHOS 10 MG/1 ML VIAL IV SCH (07:52)
[2022-07-14 08:22] LABS: BASOPHILS % 0.1 % (0.0-1.0); HEMOGLOBIN 11.4 g/dL (12.0-16.0); LYMPHOCYTES # (AUTO) 0.8 (1.0-3.2); LYMPHOCYTES % 5.3 % (18.0-39.1); MEAN CORPUSCULAR HEMOGLOBIN 28.6 pg (28-32); MEAN CORPUSCULAR HGB CONC 29.2 g/dL (31-35); MEAN CORPUSCULAR VOLUME 97.7 fL (81-99); MONOCYTES # (AUTO) 0.2 (0.2-0.8); MONOCYTES % 1.4 % (4.4-11.3); NEUTROPHILS # (AUTO) 13.7 (2.1-6.9); NEUTROPHILS % 92.3 % (38.7-80.0); PLATELET COUNT 160 x10e3/uL (140-360); RED BLOOD COUNT 3.99 x10e6/uL (3.6-5.1); RED CELL DISTRIBUTION WIDTH 16.8 % (11.7-14.4)
[2022-07-14 08:40] LABS: ALBUMIN 2.9 g/dL (3.5-5.0); ALBUMIN/GLOBULIN RATIO 0.7 (0.8-2.0); ANION GAP 17.3 mmol/L (8-16); CALCIUM 8.9 mg/dL (8.4-10.2); CREATININE, SERUM 0.87 mg/dL (0.57-1.11); POTASSIUM 3.3 mmol/L (3.5-5.1)
[2022-07-14 09:16] LABS: MAGNESIUM 1.5 MG/DL (1.3-2.1)
[2022-07-14 09:29] LABS: THYROID STIMULATING HORMONE 10.321 uIU/mL (0.350-4.940)
[2022-07-14] MEDS ORDERED: POTASSIUM CHLORIDE 20MEQ/100ML 200 ML IV ONE (10:15)
[2022-07-14 15:37] LABS: CREATINE KINASE MB 1.3 ng/mL (0-5.0)
[2022-07-14] MEDS: METOPROLOL TARTRATE 25 MG TAB PO SCH (17:43)
[2022-07-14] MEDS: LEVOFLOXACIN 500MG/D5W 100ML 100 ML IV SCH (17:43)
[2022-07-14] MEDS ORDERED: SODIUM CHLORIDE 0.9% 250ML 250 ML ONE (17:55)
[2022-07-14] MEDS: DONEPEZIL HCL 5 MG TAB PO SCH (21:22)
[2022-07-14] MEDS: REMDESIVIR 100MG 100 MG in SODIUM CHLORIDE 0.9% 100 ML IV SCH (21:22)
[2022-07-14] MEDS: ACETAMINOPHEN 325 MG TAB PO PRN (21:28)
[2022-07-14] MEDS: MELATONIN 5 MG TABLET PO PRN (21:29)
[2022-07-15] VITALS (7 sets, daily range): BP systolic 120–155; BP diastolic 56–78
[2022-07-15 06:19] LABS: BASOPHILS % 0.2 % (0.0-1.0); HEMATOCRIT 31.6 % (34.2-44.1); HEMOGLOBIN 9.8 g/dL (12.0-16.0); LYMPHOCYTES # (AUTO) 0.9 (1.0-3.2); LYMPHOCYTES % 7.9 % (18.0-39.1); MEAN CORPUSCULAR HEMOGLOBIN 28.5 pg (28-32); MEAN CORPUSCULAR VOLUME 91.9 fL (81-99); MONOCYTES # (AUTO) 0.6 (0.2-0.8); MONOCYTES % 5.4 % (4.4-11.3); NEUTROPHILS # (AUTO) 9.6 (2.1-6.9); NEUTROPHILS % 85.7 % (38.7-80.0); PLATELET COUNT 153 x10e3/uL (140-360); RED BLOOD COUNT 3.44 x10e6/uL (3.6-5.1); RED CELL DISTRIBUTION WIDTH 17.2 % (11.7-14.4)
[2022-07-15 07:02] LABS: ANION GAP 12.8 mmol/L (8-16); CALCIUM 8.9 mg/dL (8.4-10.2); CREATININE, SERUM 0.94 mg/dL (0.57-1.11); POTASSIUM 3.8 mmol/L (3.5-5.1)
[2022-07-15] MEDS: LEVOTHYROXINE SODIUM 50 MCG TAB PO SCH (08:53)
[2022-07-15] MEDS: PANTOPRAZOLE SOD 40 MG TABEC PO SCH (08:53)
[2022-07-15] MEDS: DEXAMETHASONE SOD PHOS 10 MG/1 ML VIAL IV SCH (08:54)
[2022-07-15] MEDS: FUROSEMIDE INJ 10 MG/ML 4 ML VIAL IV SCH (08:54)
[2022-07-15] MEDS: AMIODARONE HCL 200 MG TAB PO SCH (08:54)
[2022-07-15] MEDS: ASPIRIN 81 MG CHEW TAB PO SCH (08:54)
[2022-07-15] MEDS: APIXAB 2.5 MG TABLET PO SCH ×2 (08:55→16:17)
[2022-07-15] MEDS: METOPROLOL TARTRATE 25 MG TAB PO SCH ×2 (08:55→16:17)
[2022-07-15] MEDS ORDERED: ONDANSETRON HCL 4 MG ORAL DISINTEGRATING TAB PO PRN (13:45)
[2022-07-15] MEDS: PREGABALIN 50 MG CAP PO SCH (16:16)
[2022-07-15] MEDS: LEVOFLOXACIN 500MG/D5W 100ML 100 ML IV SCH (17:29)
[2022-07-15] MEDS: ACETAMINOPHEN 325 MG TAB PO PRN (17:41)
[2022-07-15] MEDS: DONEPEZIL HCL 5 MG TAB PO SCH (19:38)
[2022-07-15] MEDS: REMDESIVIR 100MG 100 MG in SODIUM CHLORIDE 0.9% 100 ML IV SCH (19:39)
[2022-07-15] MEDS: MELATONIN 5 MG TABLET PO PRN (19:41)
[2022-07-16] VITALS (9 sets, daily range): BP systolic 101–147; BP diastolic 60–82
[2022-07-16 06:23] LABS: HEMATOCRIT 32.1 % (34.2-44.1); HEMOGLOBIN 10.1 g/dL (12.0-16.0); LYMPHOCYTES # (AUTO) 0.9 (1.0-3.2); LYMPHOCYTES % 9.3 % (18.0-39.1); MEAN CORPUSCULAR HEMOGLOBIN 28.7 pg (28-32); MEAN CORPUSCULAR HGB CONC 31.5 g/dL (31-35); MEAN CORPUSCULAR VOLUME 91.2 fL (81-99); MONOCYTES # (AUTO) 0.4 (0.2-0.8); MONOCYTES % 4.5 % (4.4-11.3); NEUTROPHILS # (AUTO) 8.2 (2.1-6.9); NEUTROPHILS % 85.2 % (38.7-80.0); PLATELET COUNT 172 x10e3/uL (140-360); RED BLOOD COUNT 3.52 x10e6/uL (3.6-5.1); RED CELL DISTRIBUTION WIDTH 17.2 % (11.7-14.4)
[2022-07-16 06:51] LABS: ANION GAP 14.2 mmol/L (8-16); CALCIUM 8.4 mg/dL (8.4-10.2); CREATININE, SERUM 0.85 mg/dL (0.57-1.11); POTASSIUM 4.2 mmol/L (3.5-5.1)
[2022-07-16] MEDS: PANTOPRAZOLE SOD 40 MG TABEC PO SCH (09:54)
[2022-07-16] MEDS: DEXAMETHASONE SOD PHOS 10 MG/1 ML VIAL IV SCH (09:55)
[2022-07-16] MEDS: PREGABALIN 50 MG CAP PO SCH ×2 (09:55→16:42)
[2022-07-16] MEDS: BENZONATATE 100 MG CAP PO PRN ×2 (09:55→16:42)
[2022-07-16] MEDS: APIXAB 2.5 MG TABLET PO SCH ×2 (09:55→16:42)
[2022-07-16] MEDS: AMIODARONE HCL 200 MG TAB PO SCH (09:55)
[2022-07-16] MEDS: FUROSEMIDE INJ 10 MG/ML 4 ML VIAL IV SCH (09:55)
[2022-07-16] MEDS: LEVOTHYROXINE SODIUM 50 MCG TAB PO SCH (09:55)
[2022-07-16] MEDS: METOPROLOL TARTRATE 25 MG TAB PO SCH ×2 (09:56→16:43)
[2022-07-16] MEDS: LEVOFLOXACIN 500MG/D5W 100ML 100 ML IV SCH (16:44)
[2022-07-16] MEDS: REMDESIVIR 100MG 100 MG in SODIUM CHLORIDE 0.9% 100 ML IV SCH (20:46)
[2022-07-16] MEDS: DONEPEZIL HCL 5 MG TAB PO SCH (20:46)
[2022-07-17] VITALS: BP 117/54
[2022-07-17 05:20] VITALS: BP 139/61
[2022-07-17 08:17] VITALS: BP 137/55
[2022-07-17 08:33] VITALS: BP 122/79
[2022-07-17] MEDS: DEXAMETHASONE SOD PHOS 10 MG/1 ML VIAL IV SCH (09:03)
[2022-07-17] MEDS: LEVOTHYROXINE SODIUM 50 MCG TAB PO SCH (09:04)
[2022-07-17] MEDS: PANTOPRAZOLE SOD 40 MG TABEC PO SCH (09:04)
[2022-07-17] MEDS: AMIODARONE HCL 200 MG TAB PO SCH (09:04)
[2022-07-17] MEDS: APIXAB 2.5 MG TABLET PO SCH (09:04)
[2022-07-17] MEDS: PREGABALIN 50 MG CAP PO SCH (09:05)
[2022-07-17] MEDS: METOPROLOL TARTRATE 25 MG TAB PO SCH (09:05)
[2022-07-17] MEDS ORDERED: REMDESIVIR 100MG 100 MG in SODIUM CHLORIDE 0.9% 100 ML IV SCH (10:00)
[2022-07-17 12:02] VITALS: BP 125/56
[2022-07-17 16:28] VITALS: BP 128/62
[2022-07-17] MEDS ORDERED: LEVOFLOXACIN 500 MG TAB PO SCH (18:30)
== END 2022-07-17 17:41 | DRG 177 ==
LOC: ER 18:03 → ERHOLD 20:24 → ICU 21:28 → MED/SURG3 07-14 12:39
PROVIDERS: ADMIT Internal Medicine; ATTEND Internal Medicine
PROC: 8E0ZXY6 Isolation (ICD-10-PCS; principal; 2022-07-13)
PROC: XW033E5 Introduction of Remdesivir Anti-infective into Peripheral Vein, Percutaneous Approach, New Technology Group 5 (ICD-10-PCS; 2022-07-14)
PROC: 5A09357 Assistance with Respiratory Ventilation, Less than 24 Consecutive Hours, Continuous Positive Airway Pressure (ICD-10-PCS; 2022-07-14)
DX: U07.1 COVID-19 (principal); I50.43 Acute on chronic combined systolic (congestive) and diastolic (congestive) heart failure; J12.82 Pneumonia due to coronavirus disease 2019; J80 Acute respiratory distress syndrome; J15.9 Unspecified bacterial pneumonia; E44.0 Moderate protein-calorie malnutrition; I13.0 Hypertensive heart and chronic kidney disease with heart failure and stage 1 through stage 4 chronic kidney disease, or unspecified chronic kidney disease; E03.9 Hypothyroidism, unspecified; I48.0 Paroxysmal atrial fibrillation; Z79.01 Long term (current) use of anticoagulants; Z68.20 Body mass index [BMI] 20.0-20.9, adult; J44.9 Chronic obstructive pulmonary disease, unspecified; F03.90 Unspecified dementia, unspecified severity, without behavioral disturbance, psychotic disturbance, mood disturbance, and anxiety; Z95.0 Presence of cardiac pacemaker; I49.5 Sick sinus syndrome; R62.7 Adult failure to thrive; N18.2 Chronic kidney disease, stage 2 (mild)
CPT/HCPCS: 36415; 36600; 71045; 71260; 74177; 80048; 80053; 82550; 82553; 82805; 83036; 83605; 83735; 83880; 84443; 84484; 85025; 87040; 93005; 93306; 94660; 94799; 99252; 99285; J0248; J0360; J1100; J1940; J1956; J2920; J7050; Q0162; Q9967